=== PATIENT | female | born 1995 | race Caucasian/White ===

== ENCOUNTER 2017-10-29 07:21 | Emergency (ER) | payer SELFPAY ==
--- NOTE | 2017-10-29 08:35 | ER ---
Nurse's Notes [facility] Name: Salena Musa Age: 21 yrs Sex: Female : 1995 Arrival Date: 10/29/2017 Time: 07:24 Bed 19 Private MD: None, None Diagnosis: Encounter for general adult medical examination Presentation: 10/29 07:40 Presenting complaint: Patient states: "I am about six days late and I just want to make aa5 sure I am not ". Pt reports LMP was September. Pt reports multiple negative test at home. 07:40 Transition of care: patient was not received from another setting of care. Onset of aa5 symptoms was October 2017. Risk Assessment: Do you want to hurt yourself or someone else? Patient reports no desire to harm self or others. Initial Sepsis Screen: Does the patient meet any 2 criteria? No. Patient's initial sepsis screen is negative. Does the patient have a suspected source of infection? No. Patient's initial sepsis screen is negative. Care prior to arrival: None. 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 - Social history:: Smoking status: Patient/guardian denies using tobacco. - Ebola Screening: : No symptoms or risks identified at this time. Screenin:45 Abuse screen: Denies threats or abuse. Nutritional screening: No deficits noted. aa5 Tuberculosis screening: No symptoms or risk factors identified. Fall Risk None identified. Assessment: 07:42 General: Appears comfortable, Behavior is calm, cooperative. Pain: Denies pain. Neuro: aa5 Level of Consciousness is awake, alert, obeys commands, Oriented to person, place, time, situation. Cardiovascular: Heart tones S1 S2 present Rhythm is regular. Respiratory: Airway is patent Respiratory effort is even, unlabored, Respiratory pattern is regular, symmetrical. GI: No signs and/or symptoms were reported involving the gastrointestinal system. Patient currently denies abdominal pain. : No signs and/or symptoms were reported regarding the genitourinary system. EENT: No signs and/or symptoms were reported regarding the EENT system. Derm: Skin is pink, warm \\T\\ dry. Musculoskeletal: Range of motion: intact in all extremities. Vital Signs: 07:40 Weight 67.13 kg (R); Height 5 ft. 4 in. (162.56 cm) (R); Pain 0/10; aa5 07:50 BP 105 / 64; Pulse 97; Resp 18; Temp 98.8(O); Pulse Ox 100% on R/A; dh3 07:40 Body Mass Index 25.40 (67.13 kg, 162.56 cm) aa5 ED Course: 07:24 Patient arrived in ED. sb2 07:25 None, None is Private Physician. sb2 07:40 Seth Nicholson MD is Attending Physician. kdr 07:40 Arm band placed on Patient placed in an exam room, on a stretcher. aa5 07:41 Patient has correct armband on for positive identification. Bed in low position. Call aa5 light in reach. Side rails up X2. 07:49 Triage completed. aa5 07:50 Shelli Crane, RN is Primary Nurse. aa5 08:30 Patient did not have IV access during this emergency room visit. aa5 08:30 No provider procedures requiring assistance completed. aa5 Administered Medications: No medications were administered Outcome: 08:30 Medical screen evaluation completed per provider. Patient declined treatment. aa5 08:30 Condition: good 08:34 Discharge ordered by . aa5 08:34 Patient left the ED. aa5 Signatures: Seth Nicholson MD MD [facility] Shelli Crane, RN RN aa5 Priya Meeks [facility] Josselyn Blanco 2
[2017-10-29 08:52] VITALS: BP 105/64; TEMP 98.8; O2SAT 100
== END 2017-10-29 08:34 | disposition home or self-care (01) ==
LOC: ER 07:21
DX: Z00.00 Encounter for general adult medical examination without abnormal findings (principal); Z88.1 Allergy status to other antibiotic agents
CPT/HCPCS: 99281

== ENCOUNTER 2018-06-12 13:07 | Emergency (ER) | payer SELFPAY ==
[2018-06-12] MEDS ORDERED: NA CHLORIDE 0.9% 1,000 ML ONE (14:48)
[2018-06-12] MEDS ORDERED: PROMETHAZINE 25 MG/ML VIAL ONE (14:48)
[2018-06-12 15:06] LABS: Absolute Lymphocytes (CBC) 1.7 K/uL (0.7-4.9); Absolute Monocytes 0.8 K/uL (0.1-1.3); Absolute Neutrophil 7.2 K/uL (1.8-8.0); Basophils % 0.5 % (0-1.3); Eosinophils % 2.8 % (0-4.4); Hematocrit 35.5 % (36.0-45.0); Lymphocytes % 17.1 % (15.3-44.8); MPV 9.3 fL (7.6-11.3); Monocytes % 8.1 % (3.3-12.3); RBC Red Blood Cell Count 4.44 M/uL (3.86-4.86)
[2018-06-12 15:25] LABS: BUN Blood Urea Nitrogen 5 mg/dL (7-18); Bicarbonate 26 mmol/L (21-32); Glucose Level 84 mg/dL (74-106); HCG, Quantitative 210 mIU/mL (1-3); Potassium 3.6 mmol/L (3.5-5.1); Sodium Level 142 mmol/L (136-145)
--- NOTE | 2018-06-12 15:32 | ER ---
Nurse's Notes [facility] Name: Salena Musa Age: 22 yrs Sex: Female : 1995 Arrival Date: 06/12/2018 Time: 13:10 Bed 19 Private MD: Diagnosis: Vomiting of , unspecified Presentation: 06/12 13:28 Presenting complaint: Patient states: Merary been around my parents and they have both sg been sick but I didn't think I would catch anything, reports just found out shes and has been vomiting the last couple of days, reports body aches and chills. Transition of care: patient was not received from another setting of care. Onset of symptoms was June 12, 2018. Risk Assessment: Do you want to hurt yourself or someone else? Patient reports no desire to harm self or others. Initial Sepsis Screen: Does the patient meet any 2 criteria? No. Patient's initial sepsis screen is negative. Does the patient have a suspected source of infection? No. Patient's initial sepsis screen is negative. Care prior to arrival: None. 13:28 Method Of Arrival: Ambulatory sg 13:28 Acuity: JERICA 3 hb 13:55 Note pt reports RUQ abd pain now, reported upon entering the exam room. 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 - Social history:: Smoking status: Patient/guardian denies using tobacco. - Ebola Screening: : Patient negative for fever greater than or equal to 101.5 degrees Fahrenheit, and additional compatible Ebola Virus Disease symptoms Patient denies exposure to infectious person Patient denies travel to an Ebola-affected area in the 21 days before illness onset No symptoms or risks identified at this time. Screenin:30 Abuse screen: Denies threats or abuse. Nutritional screening: No deficits noted. em Tuberculosis screening: No symptoms or risk factors identified. Fall Risk None identified. Assessment: 14:30 General: Appears in no apparent distress. comfortable, Behavior is calm, cooperative, em Denies fever. Pain: Complains of pain in face and right lower quadrant Pain currently is 5 out of 10 on a pain scale. Neuro: Level of Consciousness is awake, alert, obeys commands, Oriented to person, place, time, situation. Neuro: Reports headache Denies dizziness, numbness. Cardiovascular: Capillary refill < 3 seconds Patient's skin is warm and dry. Respiratory: Airway is patent Respiratory effort is even, unlabored, Respiratory pattern is regular, symmetrical. GI: Abdomen is round non-distended, Bowel sounds present X 4 quads. Abd is soft X 4 quads Abdomen is tender to palpation in right lower quadrant Reports nausea, vomiting, Patient currently denies diarrhea. : Urine is clear. Derm: Skin is intact, is healthy with good turgor, Skin is pink, warm \T\ dry. Musculoskeletal: Range of motion: intact in all extremities. 14:40 Reassessment: I agree with previous assessment. hb 15:30 Reassessment: Patient appears in no apparent distress at this time. Patient and/or em family updated on plan of care and expected duration. Pain level reassessed. Patient is alert, oriented x 3, equal unlabored respirations, skin warm/dry/pink. Patient states feeling better. Patient states symptoms have improved. Vital Signs: 13:25 Pulse 95; Resp 17; Temp 97.8; Pulse Ox 100% ; Weight 72.57 kg; Height 5 ft. 4 in. sg (162.56 cm); Pain 8/10; 13:28 BP 139 / 77; sg 14:30 BP 111 / 57; Pulse 86; Resp 18; Pulse Ox 99% on R/A; em 15:30 BP 109 / 53; Pulse 78; Resp 18; Pulse Ox 99% on R/A; em 13:25 Body Mass Index 27.46 (72.57 kg, 162.56 cm) ED Course: 13:10 Patient arrived in ED. mr 13:27 Arm band placed on. sg 13:29 Triage completed. sg 13:58 Marko Woods MD is Attending Physician. [facility] 13:59 Siena Treviño FNP-C is PHCP. kb 14:14 Dami Menendez LVN is Primary Nurse. em 14:30 Patient has correct armband on for positive identification. Placed in gown. Bed in low em position. Side rails up X2. Adult w/ patient. Pulse ox on. NIBP on. 14:30 Initial lab(s) drawn, by me, sent to lab. Inserted saline lock: 20 gauge in left em antecubital area, using aseptic technique. Blood collected. 16:14 No provider procedures requiring assistance completed. IV discontinued, intact, em bleeding controlled, No redness/swelling at site. Pressure dressing applied. Administered Medications: 14:49 Drug: NS 0.9% 1000 ml Route: IV; Rate: 1000 ml; Site: left antecubital; em 15:30 Follow up: IV Status: Completed infusion; IV Intake: 1000ml em 14:52 Drug: Phenergan 12.5 mg Route: IVP; Site: left antecubital; hb 15:30 Follow up: Response: No adverse reaction; Nausea is decreased em Intake: 15:30 IV: 1000ml; Total: 1000ml. em Outcome: 15:32 Discharge ordered by . kb 16:14 Discharged to home ambulatory. em 16:14 Condition: good 16:14 Discharge instructions given to patient, Instructed on discharge instructions, follow up and referral plans. Demonstrated understanding of instructions, follow-up care. 16:15 Patient left the ED. em Signatures: Siena Treviño, SYSTEMS OPERATOR-C SYSTEMS OPERATOR-Shaq Herrera, RN RN sg Marko Woods MD MD cha Rivera, Mary mr Munoz, Edgar, STERILIZER OPERATOR STERILIZER OPERATOR em Serena Vogt, RN RN hb Corrections: (The following items were deleted from the chart) 13:56 13:28 Acuity: JERICA 4 sg hb
--- NOTE | 2018-06-12 15:32 | EDPHYS ---
Physician Documentation [facility] Name: Salena Musa Age: 22 yrs Sex: Female : 1995 Arrival Date: 06/12/2018 Time: 13:10 Bed 19 Private MD: ED Physician Marko Woods HPI: 06/12 14:10 This 22 yrs old Female presents to ER via Ambulatory with complaints of kb Vomiting, Unknown wks . 14:28 The patient presents to the emergency department with nausea and vomiting, that started kb yesterday. course: care: none, Leakage of Fluid: none appreciated, Ultrasound: the patient has not had an ultrasound. Previous pregnancies: in previous pregnancies patient has had. Associated signs and symptoms: Pertinent positives: nausea, vomiting, Pertinent negatives: abdominal pain, chest pain, diarrhea, dysuria, fever, frequency, ruptured membranes, seizure, shortness of breath, vaginal bleeding, vaginal discharge. The patient has not experienced similar symptoms in the past. The patient has not recently seen a physician. Pt reports vomiting, weakness and headache since yesterday. Had + test 5 days ago. 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 - Social history:: Smoking status: Patient/guardian denies using tobacco. - Ebola Screening: : Patient negative for fever greater than or equal to 101.5 degrees Fahrenheit, and additional compatible Ebola Virus Disease symptoms Patient denies exposure to infectious person Patient denies travel to an Ebola-affected area in the 21 days before illness onset No symptoms or risks identified at this time. ROS: 14:30 Constitutional: Negative for fever, chills, and weight loss, Cardiovascular: Negative kb for chest pain, palpitations, and edema, Respiratory: Negative for shortness of breath, cough, wheezing, and pleuritic chest pain, Back: Negative for injury and pain, : Negative for injury, bleeding, discharge, and swelling, MS/Extremity: Negative for injury and deformity, Skin: Negative for injury, rash, and discoloration, Neuro: Negative for headache, weakness, numbness, tingling, and seizure. 14:30 Abdomen/GI: Positive for nausea and vomiting, Negative for abdominal pain, diarrhea, constipation, abdominal cramps, abdominal distension, anorexia. Exam: 14:30 Constitutional: This is a well developed, well nourished patient who is awake, alert, kb and in no acute distress. Head/Face: Normocephalic, atraumatic. Chest/axilla: Normal chest wall appearance and motion. Nontender with no deformity. No lesions are appreciated. Cardiovascular: Regular rate and rhythm with a normal S1 and S2. No gallops, murmurs, or rubs. Normal PMI, no JVD. No pulse deficits. Respiratory: Lungs have equal breath sounds bilaterally, clear to auscultation and percussion. No rales, rhonchi or wheezes noted. No increased work of breathing, no retractions or nasal flaring. Abdomen/GI: Soft, non-tender, with normal bowel sounds. No distension or tympany. No guarding or rebound. No evidence of tenderness throughout. Back: No spinal tenderness. No costovertebral tenderness. Full range of motion. Skin: Warm, dry with normal turgor. Normal color with no rashes, no lesions, and no evidence of cellulitis. MS/ Extremity: Pulses equal, no cyanosis. Neurovascular intact. Full, normal range of motion. Neuro: Awake and alert, GCS 15, oriented to person, place, time, and situation. Cranial nerves II-XII grossly intact. Motor strength 5/5 in all extremities. Sensory grossly intact. Cerebellar exam normal. Normal gait. Vital Signs: 13:25 Pulse 95; Resp 17; Temp 97.8; Pulse Ox 100% ; Weight 72.57 kg; Height 5 ft. 4 in. sg (162.56 cm); Pain 8/10; 13:28 BP 139 / 77; sg 14:30 BP 111 / 57; Pulse 86; Resp 18; Pulse Ox 99% on R/A; em 15:30 BP 109 / 53; Pulse 78; Resp 18; Pulse Ox 99% on R/A; em 13:25 Body Mass Index 27.46 (72.57 kg, 162.56 cm) MDM: 13:59 Patient medically screened. [facility] 14:30 Data reviewed: vital signs, nurses notes. Data interpreted: Pulse oximetry: on room air kb is 100 %. Interpretation: normal. 15:29 Counseling: I had a detailed discussion with the patient and/or guardian regarding: the kb historical points, exam findings, and any diagnostic results supporting the discharge/admit diagnosis, lab results, the need for outpatient follow up, an OB/Gyne specialist, to return to the emergency department if symptoms worsen or persist or if there are any questions or concerns that arise at home. 06/12 13:28 Order name: Flu sg 06/12 13:28 Order name: Influenza Screen (A ; Complete Time: 14:27 EDOH 06/12 14:35 Order name: Quantitative Hcg; Complete Time: 15:27 kb 06/12 14:35 Order name: Abo/rh Typing 06/12 14:35 Order name: Basic Metabolic Panel; Complete Time: 15:27 kb 06/12 14:35 Order name: CBC with Diff; Complete Time: 15:10 kb 06/12 13:59 Order name: Urine Dipstick-Ancillary (obtain specimen); Complete Time: 14:53 kb 06/12 14:31 Order name: PO challenge; Complete Time: 16:10 kb 06/12 14:37 Order name: Urine Dipstick--Ancillary (enter results) ms 06/12 14:37 Order name: Urine --Ancillary (enter results) ms 06/12 14:38 Order name: Urine Dipstick-Ancillary [facility] 06/12 14:38 Order name: Urine --Ancillary [facility] 06/12 14:35 Order name: IV Saline Lock; Complete Time: 14:49 kb 06/12 14:35 Order name: Labs collected and sent; Complete Time: 14:49 kb 06/12 14:35 Order name: NPO; Complete Time: 14:49 kb Administered Medications: 14:49 Drug: NS 0.9% 1000 ml Route: IV; Rate: 1000 ml; Site: left antecubital; em 15:30 Follow up: IV Status: Completed infusion; IV Intake: 1000ml em 14:52 Drug: Phenergan 12.5 mg Route: IVP; Site: left antecubital; hb 15:30 Follow up: Response: No adverse reaction; Nausea is decreased em Disposition: 06/13 07:57 Co-signature as Attending Physician, Marko Woods MD I agree with the assessment and mark plan of care. Disposition: 06/12/18 15:32 Discharged to Home. Impression: Vomiting of , unspecified. - Condition is Stable. - Discharge Instructions: Morning Sickness, [id number], Nausea and Vomiting, Adult, [id number]. - Medication Reconciliation Form, Thank You Letter, Antibiotic Education, Prescription Opioid Use form. - Follow up: Emergency Department; When: As needed; Reason: Worsening of condition. Follow up: Private Physician; When: 2 - 3 days; Reason: Recheck today's complaints, Continuance of care, Re-evaluation by your physician. Signatures: Dispatcher [employer] EDMS Siena Treviño, DOOR AND ARRIVAL ATTENDANT-C DOOR AND ARRIVAL ATTENDANT-Ckb Shaq Petit, RN RN Marko Baig MD MD cha Munoz, Edgar, ERISA ATTORNEY ERISA ATTORNEY em Serena Vogt, RN RN Corrections: (The following items were deleted from the chart) 06/12 16:15 15:32 06/12/2018 15:32 Discharged to Home. Impression: Vomiting of , em unspecified. Condition is Stable. Forms are Medication Reconciliation Form, Thank You Letter, Antibiotic Education, Prescription Opioid Use. Follow up: Emergency Department; When: As needed; Reason: Worsening of condition. Follow up: Private Physician; When: 2 - 3 days; Reason: Recheck today's complaints, Continuance of care, Re-evaluation by your physician. kb
[2018-06-12 16:30] VITALS: TEMP 97.8
[2018-06-12 16:35] VITALS: O2SAT 99
[2018-06-12 16:36] VITALS: BP 109/53
[2018-06-12 20:38] LABS: Urine Blood NEGATIVE (NEG); Urine Glucose NEGATIVE (NEG); Urine Protein NEGATIVE (NEG); Urine pH 7.5 (5.0-7.0)
== END 2018-06-12 16:15 | disposition home or self-care (01) ==
LOC: ER 13:07
DX: O21.9 Vomiting of pregnancy, unspecified (principal); Z3A.00 Weeks of gestation of pregnancy not specified; D64.9 Anemia, unspecified; Z88.0 Allergy status to penicillin
CPT/HCPCS: 36415; 80048; 81003; 81025; 84702; 85025; 86900; 86901; 87804; 96361; 96374; 99284; J2550; J7030

== ENCOUNTER 2018-08-07 16:59 | Emergency (ER) | payer SELFPAY ==
[2018-08-07] MEDS ORDERED: ONDANSETRON 4 MG/2 ML VIAL ONE (17:55)
[2018-08-07] MEDS ORDERED: NA CHLORIDE 0.9% 1,000 ML ONE (17:55)
[2018-08-07 18:08] LABS: Absolute Lymphocytes (CBC) 0.6 K/uL (0.7-4.9); Absolute Monocytes 0.8 K/uL (0.1-1.3); Absolute Neutrophil 14.5 K/uL (1.8-8.0); Basophils % 0.2 % (0-1.3); Eosinophils % 0.9 % (0-4.4); Hematocrit 37.8 % (36.0-45.0); Lymphocytes % 3.9 % (15.3-44.8); MPV 9.9 fL (7.6-11.3); Monocytes % 4.9 % (3.3-12.3); RBC Red Blood Cell Count 4.57 M/uL (3.86-4.86)
[2018-08-07 18:14] LABS: BUN Blood Urea Nitrogen 9 mg/dL (7-18); Bicarbonate 23 mmol/L (21-32); Glucose Level 84 mg/dL (74-106); Potassium 3.6 mmol/L (3.5-5.1); Sodium Level 140 mmol/L (136-145)
[2018-08-07 18:21] LABS: Urine Blood NEGATIVE (NEG); Urine Glucose NEGATIVE (NEG); Urine Protein 2+ (NEG); Urine Specific Gravity >1.030 (1.005-1.030); Urine pH 5.5 (5.0-7.0)
--- NOTE | 2018-08-07 18:38 | ER ---
Nurse's Notes [facility] Name: Salena Musa Age: 22 yrs Sex: Female : 1995 Arrival Date: 08/07/2018 Time: 17:02 Bed 17 Private MD: Diagnosis: Gastroenteritis Presentation: 08/07 17:10 Presenting complaint: Patient states: lower abd pain, vomiting, "I blacked out sv earlier.". Transition of care: patient was not received from another setting of care. Onset of symptoms was August 07, 2018. Care prior to arrival: None. 17:10 Method Of Arrival: Ambulatory sv 17:10 Acuity: JERICA 2 sv Triage Assessment: 17:11 General: Appears in no apparent distress. uncomfortable, well developed, Behavior is sv cooperative, restless. Pain: Complains of pain in right lower quadrant and left lower quadrant Pain currently is 7 out of 10 on a pain scale. Neuro: Level of Consciousness is awake, alert, obeys commands, Oriented to person, place, time, situation, Gait is steady. Respiratory: Respiratory effort is even, unlabored, Respiratory pattern is regular, symmetrical. 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 Nutritional screening: No deficits noted. em Tuberculosis screening: No symptoms or risk factors identified. Fall Risk None identified. Assessment: 17:35 General: Appears in no apparent distress. comfortable, Behavior is calm, cooperative, em Denies fever. Pain: Complains of pain in abdomen Pain currently is 9 out of 10 on a pain scale. Neuro: Level of Consciousness is awake, alert, obeys commands, Oriented to person, place, time, situation, Reports dizziness, Denies headache. Cardiovascular: Capillary refill < 3 seconds Patient's skin is warm and dry. Respiratory: Airway is patent Respiratory effort is even, unlabored, Respiratory pattern is regular, symmetrical. GI: Abdomen is flat, Reports diarrhea, nausea, vomiting. : Denies burning with urination, urinary frequency. Derm: Skin is intact, is healthy with good turgor, Skin is pink, warm \\T\\ dry. Musculoskeletal: Capillary refill < 3 seconds, Range of motion: intact in all extremities. 17:45 Reassessment: I agree with previous assessment. hb 18:41 Reassessment: Patient appears in no apparent distress at this time. Patient and/or em family updated on plan of care and expected duration. Pain level reassessed. Patient is alert, oriented x 3, equal unlabored respirations, skin warm/dry/pink. Patient states feeling better. Patient states symptoms have improved. Vital Signs: 17:10 BP 144 / 127; Pulse 102; Resp 22; Temp 98.1; Pulse Ox 100% ; Weight 72.57 kg; Height 5 sv ft. 4 in. (162.56 cm); Pain 9/10; 17:35 BP 100 / 64; Pulse 93; Resp 18; Pulse Ox 99% on R/A; em 17:10 Body Mass Index 27.46 (72.57 kg, 162.56 cm) sv ED Course: 17:02 Patient arrived in ED. mr 17:10 Triage completed. sv 17:11 Arm band placed on. sv 17:12 Dami Menendez LVN is Primary Nurse. em 17:18 Gabriele Cruz PA is PHCP. jr8 17:18 Mrako Woods MD is Attending Physician. jr8 18:00 Patient has correct armband on for positive identification. Bed in low position. Call em light in reach. Pulse ox on. NIBP on. 18:00 Initial lab(s) drawn, by me, sent to lab. Inserted saline lock: 20 gauge in left em antecubital area, using aseptic technique. Blood collected. 18:48 No provider procedures requiring assistance completed. IV discontinued, intact, em bleeding controlled, No redness/swelling at site. Pressure dressing applied. Administered Medications: 17:58 Drug: Zofran 4 mg Route: IVP; Site: left antecubital; hb 18:48 Follow up: Response: No adverse reaction; Nausea is decreased em 17:58 Drug: NS 0.9% 1000 ml Route: IV; Rate: 1000 ml; Site: left antecubital; hb 18:48 Follow up: IV Status: Completed infusion; IV Intake: 1000ml em Intake: 18:48 IV: 1000ml; Total: 1000ml. em Outcome: 18:38 Discharge ordered by . jr8 18:48 Discharged to home ambulatory. em 18:48 Condition: good 18:48 Discharge instructions given to patient, Instructed on discharge instructions, follow up and referral plans. medication usage, Demonstrated understanding of instructions, follow-up care, medications, Prescriptions given X 1. 18:51 Patient left the ED. em Signatures: Carly Eid, RN RN Cierra Sánchez, Dami, CONTINUOUS ABSORPTION PROCESS OPERATOR CONTINUOUS ABSORPTION PROCESS OPERATOR em Gabriele Cruz PA PA jr8 Serena Vogt RN RN Corrections: (The following items were deleted from the chart) 17:11 17:10 Presenting complaint: Patient states: vomiting, "I blacked out earlier." sv sv 17:12 17:10 Acuity: JERICA 3 sv sv 17:12 17:10 BP 1 / ???; Pulse 102bpm; Resp 22bpm; Pulse Ox 100%; Temp 98.1F; 72.57 kg; Height sv 5 ft. 4 in.; BMI: 27.4; Pain 9/10; sv
--- NOTE | 2018-08-07 18:39 | EDPHYS ---
Physician Documentation [facility] Name: Salena Musa Age: 22 yrs Sex: Female : 1995 Arrival Date: 08/07/2018 Time: 17:02 Bed 17 Private MD: ED Physician Marko Woods HPI: 08/07 18:06 This 22 yrs old Female presents to ER via Ambulatory with complaints of jr8 Vomiting, Dizziness. 18:06 The patient presents to the emergency department with nausea, vomiting, diarrhea. jr8 Onset: The symptoms/episode began/occurred acutely, today. Possible causes: unknown. The symptoms are aggravated by nothing. The symptoms are alleviated by nothing. Associated signs and symptoms: The patient has no apparent associated signs or symptoms. Severity of symptoms: At their worst the symptoms were moderate in the emergency department the symptoms are unchanged. The patient has not experienced similar symptoms in the past. The patient has not recently seen a physician. Stated that her daughter was recently diagnosed with influenza this past Wednesday. This AM has had multiple bouts of n/v/d. Has not been able to hold anything down . 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 em Historical: - Allergies: 17:10 Amoxicillin; sv - PMHx: 17:10 Anemia; sv - PSHx: 17:10 ; sv ROS: 18:06 Eyes: Negative for injury, pain, redness, and discharge, ENT: Negative for injury, jr8 pain, and discharge, Neck: Negative for injury, pain, and swelling, Cardiovascular: Negative for chest pain, palpitations, and edema, Respiratory: Negative for shortness of breath, cough, wheezing, and pleuritic chest pain, Back: Negative for injury and pain, MS/Extremity: Negative for injury and deformity, Skin: Negative for injury, rash, and discoloration, Neuro: Negative for headache, weakness, numbness, tingling, and seizure. 18:06 Abdomen/GI: Positive for nausea, vomiting, and diarrhea, Negative for abdominal pain, abdominal distension, anorexia, dysphagia, hematemesis, black/tarry stool, rectal pain, rectal bleeding, bowel incontinence, flatulence. Exam: 18:06 Eyes: Pupils equal round and reactive to light, extra-ocular motions intact. Lids and jr8 lashes normal. Conjunctiva and sclera are non-icteric and not injected. Cornea within normal limits. Periorbital areas with no swelling, redness, or edema. ENT: Nares patent. No nasal discharge, no septal abnormalities noted. Tympanic membranes are normal and external auditory canals are clear. Oropharynx with no redness, swelling, or masses, exudates, or evidence of obstruction, uvula midline. Mucous membranes moist. Neck: Trachea midline, no thyromegaly or masses palpated, and no cervical lymphadenopathy. Supple, full range of motion without nuchal rigidity, or vertebral point tenderness. No Meningismus. Cardiovascular: Regular rate and rhythm with a normal S1 and S2. No gallops, murmurs, or rubs. Normal PMI, no JVD. No pulse deficits. Respiratory: Lungs have equal breath sounds bilaterally, clear to auscultation and percussion. No rales, rhonchi or wheezes noted. No increased work of breathing, no retractions or nasal flaring. Abdomen/GI: Soft, non-tender, with normal bowel sounds. No distension or tympany. No guarding or rebound. No evidence of tenderness throughout. Back: No spinal tenderness. No costovertebral tenderness. Full range of motion. Skin: Warm, dry with normal turgor. Normal color with no rashes, no lesions, and no evidence of cellulitis. MS/ Extremity: Pulses equal, no cyanosis. Neurovascular intact. Full, normal range of motion. Neuro: Awake and alert, GCS 15, oriented to person, place, time, and situation. Cranial nerves II-XII grossly intact. Motor strength 5/5 in all extremities. Sensory grossly intact. Cerebellar exam normal. Normal gait. Vital Signs: 17:10 BP 144 / 127; Pulse 102; Resp 22; Temp 98.1; Pulse Ox 100% ; Weight 72.57 kg; Height 5 sv ft. 4 in. (162.56 cm); Pain 9/10; 17:35 BP 100 / 64; Pulse 93; Resp 18; Pulse Ox 99% on R/A; em 17:10 Body Mass Index 27.46 (72.57 kg, 162.56 cm) sv MDM: 17:18 Patient medically screened. [facility] 18:37 Data reviewed: vital signs, nurses notes, lab test result(s), and as a result, I will jr8 discharge patient. Data interpreted: Pulse oximetry: on room air is 99 %. Interpretation: normal. Counseling: I had a detailed discussion with the patient and/or guardian regarding: the historical points, exam findings, and any diagnostic results supporting the discharge/admit diagnosis, lab results, the need for outpatient follow up, a family practitioner, an OB/Gyne specialist, to return to the emergency department if symptoms worsen or persist or if there are any questions or concerns that arise at home. Response to treatment: the patient's symptoms have markedly improved after treatment, patient is well hydrated. 08/07 17:38 Order name: CBC with Diff em 08/07 17:38 Order name: Basic Metabolic Panel; Complete Time: 18:15 em 08/07 17:38 Order name: Influenza Screen (a \T\ B); Complete Time: 18:32 em 08/07 17:38 Order name: CBC with Automated Diff; Complete Time: 18:48 EDMS 08/07 18:12 Order name: CBC Smear Scan; Complete Time: 18:48 EDMS 08/07 18:15 Order name: Urine Dipstick--Ancillary (enter results); Complete Time: 18:32 ms 08/07 17:38 Order name: Urine Dipstick-Ancillary (obtain specimen); Complete Time: 18:47 em 08/07 17:38 Order name: Urine Test (obtain specimen); Complete Time: 18:47 em 08/07 18:15 Order name: Urine --Ancillary (enter results); Complete Time: 18:32 ms Administered Medications: 17:58 Drug: Zofran 4 mg Route: IVP; Site: left antecubital; hb 18:48 Follow up: Response: No adverse reaction; Nausea is decreased em 17:58 Drug: NS 0.9% 1000 ml Route: IV; Rate: 1000 ml; Site: left antecubital; hb 18:48 Follow up: IV Status: Completed infusion; IV Intake: 1000ml em Disposition: 08/08 07:51 Co-signature as Attending Physician, Marko Woods MD I agree with the assessment and mark plan of care. Disposition: 08/07/18 18:38 Discharged to Home. Impression: Gastroenteritis. - Condition is Stable. - Discharge Instructions: Viral Gastroenteritis, Adult. - Prescriptions for promethazine 25 mg Oral Tablet - take 1 tablet by ORAL route every 6 hours As needed; 20 tablet. - Medication Reconciliation Form, Thank You Letter, Antibiotic Education, Prescription Opioid Use form. - Follow up: Private Physician; When: 5 - 6 days; Reason: Recheck today's complaints, Continuance of care, Re-evaluation by your physician. - Problem is new. - Symptoms have improved. Signatures: Dispatcher [employer] Carly Wright, DANO RN Marko Eduardo MD MD cha Munoz, Edgar, REJECTED ITEMS CLERK REJECTED ITEMS CLERK em Gabriele Cruz, ART CORDOVA jr8 Serena Vogt RN RN Corrections: (The following items were deleted from the chart) 08/07 18:51 18:38 08/07/2018 18:38 Discharged to Home. Impression: Gastroenteritis. Condition is em Stable. Forms are Medication Reconciliation Form, Thank You Letter, Antibiotic Education, Prescription Opioid Use. Follow up: Private Physician; When: 5 - 6 days; Reason: Recheck today's complaints, Continuance of care, Re-evaluation by your physician. Problem is new. Symptoms have improved. jr8
[2018-08-07 18:47] LABS: Blood Morphology Comment NOT SEEN (NOT SEEN); Platelet Estimate ADEQ; Urine White Blood Cell Casts OK
[2018-08-07 18:58] VITALS: TEMP 98.1
[2018-08-07 18:59] VITALS: BP 100/64; O2SAT 99
== END 2018-08-07 18:51 | disposition home or self-care (01) ==
LOC: ER 16:59
DX: K52.9 Noninfective gastroenteritis and colitis, unspecified (principal); D64.9 Anemia, unspecified; Z88.0 Allergy status to penicillin
CPT/HCPCS: 36415; 80048; 81003; 81025; 85025; 87804; 96361; 96374; 99284; J2405; J7030

== ENCOUNTER 2019-02-07 04:39 | Emergency (ER) | payer OTHER ==
[2019-02-07] MEDS ORDERED: NA CHLORIDE 0.9% 1,000 ML ONE (05:17)
[2019-02-07 05:39] LABS: Absolute Lymphocytes (CBC) 2.5 K/uL (0.7-4.9); Hematocrit 33.9 % (36.0-45.0); Lymphocytes % 22.5 % (15.3-44.8); MPV 8.7 fL (7.6-11.3); RBC Red Blood Cell Count 4.58 M/uL (3.86-4.86)
[2019-02-07 05:48] LABS: BUN Blood Urea Nitrogen 9 mg/dL (7-18); Bicarbonate 29 mmol/L (21-32); Glucose Level 95 mg/dL (74-106); HCG, Quantitative 5 mIU/mL (1-3); Potassium 3.9 mmol/L (3.5-5.1); Sodium Level 140 mmol/L (136-145)
--- NOTE | 2019-02-07 06:01 | ER ---
Nurse's Notes [facility] Name: Salena Musa Age: 23 yrs Sex: Female : 1995 Arrival Date: 02/07/2019 Time: 04:42 Bed 5 Private MD: Diagnosis: Dysmenorrhea, unspecified;Anemia, unspecified Presentation: 02/07 05:02 Presenting complaint: Patient states: heavy vaginal bleeding started suddenly last ak1 night with cramps. pt stated in there ER lobby restroom the bleeding had slowed. Transition of care: patient was not received from another setting of care. Onset of symptoms was February 07, 2019. Risk Assessment: Do you want to hurt yourself or someone else? Patient reports no desire to harm self or others. Initial Sepsis Screen: Does the patient meet any 2 criteria? No. Patient's initial sepsis screen is negative. Does the patient have a suspected source of infection? No. Patient's initial sepsis screen is negative. Note pt s/p delivery 01/27/19. Care prior to arrival: None. 05:02 Method Of Arrival: Ambulatory ak1 05:02 Acuity: JERICA 3 ak1 Triage Assessment: 05:04 General: Appears in no apparent distress. Behavior is calm, cooperative. ak1 05:04 : Reports vaginal bleeding that is heavy flow since late last night. 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 - Social history:: Smoking status: Patient/guardian denies using tobacco. - Ebola Screening: : No symptoms or risks identified at this time. - Family history:: not pertinent. Screenin:04 Abuse screen: Denies threats or abuse. Denies injuries from another. Nutritional ak1 screening: No deficits noted. Tuberculosis screening: No symptoms or risk factors identified. Fall Risk None identified. Assessment: 05:15 General: Appears in no apparent distress. Behavior is calm, cooperative, appropriate wh for age. Pain: Denies pain. Neuro: Level of Consciousness is awake, alert, obeys commands, Oriented to person, place, time, situation, Appropriate for age. Cardiovascular: Heart tones S1 S2. Respiratory: Airway is patent Respiratory effort is even, unlabored, Respiratory pattern is regular, symmetrical, Breath sounds are clear bilaterally. GI: Abdomen is round non-distended, Abd is soft and non tender X 4 quads. Reports S/P Caesarian Section done with steristrips. : S/P Caesarian Section with Steri-Strip dressing Reports vaginal bleeding that is. EENT: No signs and/or symptoms were reported regarding the EENT system. Derm: Skin is intact, is healthy with good turgor, Skin is pink, warm \T\ dry. normal. Musculoskeletal: Circulation, motion, and sensation intact. Vital Signs: 05:01 BP 113 / 68; Pulse 87; Resp 16; Temp 97.6(TE); Pulse Ox 99% on R/A; Weight 77.11 kg ak1 (R); Height 5 ft. 4 in. (162.56 cm) (R); Pain 3/10; 05:28 BP 111 / 68 Supine; Pulse 86; ea 05:29 BP 101 / 57 Sitting; Pulse 85; ea 05:29 BP 108 / 66 Standing; Pulse 102; ea 05:01 Body Mass Index 29.18 (77.11 kg, 162.56 cm) ak1 ED Course: 04:42 Patient arrived in ED. es 04:50 Marko Woods MD is Attending Physician. mark 04:57 Dany Ruiz is Primary Nurse. 05:01 Arm band placed on Patient placed in an exam room, on a stretcher, on pulse oximetry, ak1 Patient notified of wait time. 05:03 Triage completed. ak1 05:04 Patient has correct armband on for positive identification. Bed in low position. Call ak1 light in reach. Side rails up X 1. Adult w/ patient. Pulse ox on. NIBP on. 05:10 Inserted saline lock: 22 gauge in right antecubital area, using aseptic technique. wh Blood collected. 06:16 No provider procedures requiring assistance completed. IV discontinued, intact, wh bleeding controlled, No redness/swelling at site. Administered Medications: 05:24 Drug: NS 0.9% 1000 ml Route: IV; Rate: 1 bolus; Site: left antecubital; ea 06:17 Follow up: Response: No adverse reaction; IV Status: Completed infusion Outcome: 06:00 Discharge ordered by . mark 06:17 Discharged to home ambulatory, with family. 06:17 Condition: stable 06:17 Discharge instructions given to patient, family, Instructed on discharge instructions, follow up and referral plans. medication usage, POC Demonstrated understanding of instructions, follow-up care, medications, POC Prescriptions given X 1. 06:18 Patient left the ED. Signatures: Marko Woods MD MD cha Salyer, Edna es Krenek, Amber, RN RN ak1 Gita Cordova RN RN Dany Woods
--- NOTE | 2019-02-07 06:01 | EDPHYS ---
Physician Documentation [facility] Name: Salena Musa Age: 23 yrs Sex: Female : 1995 Arrival Date: 02/07/2019 Time: 04:42 Bed 5 Private MD: ED Physician Marko Woods HPI: 02/07 05:05 This 23 yrs old Female presents to ER via Ambulatory with complaints of mark Vaginal Bleeding. 05:05 The patient presents with vaginal bleeding that is. Onset: The symptoms/episode mark began/occurred just prior to arrival, this morning. Modifying factors: The symptoms are alleviated by nothing, the symptoms are aggravated by nothing. Associated signs and symptoms: The patient has no apparent associated signs or symptoms. Severity of symptoms: At their worst the symptoms were. The patient is not sexually active. The patient has experienced similar episodes in the past, multiple times. 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 - Social history:: Smoking status: Patient/guardian denies using tobacco. - Ebola Screening: : No symptoms or risks identified at this time. - Family history:: not pertinent. ROS: 05:05 Constitutional: Negative for fever, chills, and weight loss, Eyes: Negative for injury, mark pain, redness, and discharge, ENT: Negative for injury, pain, and discharge, Neck: Negative for injury, pain, and swelling, Cardiovascular: Negative for chest pain, palpitations, and edema, Respiratory: Negative for shortness of breath, cough, wheezing, and pleuritic chest pain, MS/Extremity: Negative for injury and deformity, Skin: Negative for injury, rash, and discoloration, Neuro: Negative for headache, weakness, numbness, tingling, and seizure. 05:05 : Positive for vaginal bleeding. Exam: 05:05 Constitutional: This is a well developed, well nourished patient who is awake, alert, mark and in no acute distress. Head/Face: Normocephalic, atraumatic. Eyes: Pupils equal round and reactive to light, extra-ocular motions intact. Lids and lashes normal. Conjunctiva and sclera are non-icteric and not injected. Cornea within normal limits. Periorbital areas with no swelling, redness, or edema. ENT: Nares patent. No nasal discharge, no septal abnormalities noted. Tympanic membranes are normal and external auditory canals are clear. Oropharynx with no redness, swelling, or masses, exudates, or evidence of obstruction, uvula midline. Mucous membranes moist. Neck: Trachea midline, no thyromegaly or masses palpated, and no cervical lymphadenopathy. Supple, full range of motion without nuchal rigidity, or vertebral point tenderness. No Meningismus. Chest/axilla: Normal chest wall appearance and motion. Nontender with no deformity. No lesions are appreciated. Cardiovascular: Regular rate and rhythm with a normal S1 and S2. No gallops, murmurs, or rubs. Normal PMI, no JVD. No pulse deficits. Respiratory: Lungs have equal breath sounds bilaterally, clear to auscultation and percussion. No rales, rhonchi or wheezes noted. No increased work of breathing, no retractions or nasal flaring. Abdomen/GI: Soft, non-tender, with normal bowel sounds. No distension or tympany. No guarding or rebound. No evidence of tenderness throughout. Back: No spinal tenderness. No costovertebral tenderness. Full range of motion. Pelvic Exam: Normal external genitalia. Speculum exam with closed cervical os, no discharge or bleeding noted. Bimanual exam with normal adnexa, no adnexal or cervical motion tenderness. Normal uterus. Skin: Warm, dry with normal turgor. Normal color with no rashes, no lesions, and no evidence of cellulitis. MS/ Extremity: Pulses equal, no cyanosis. Neurovascular intact. Full, normal range of motion. Neuro: Awake and alert, GCS 15, oriented to person, place, time, and situation. Cranial nerves II-XII grossly intact. Motor strength 5/5 in all extremities. Sensory grossly intact. Cerebellar exam normal. Normal gait. Vital Signs: 05:01 BP 113 / 68; Pulse 87; Resp 16; Temp 97.6(TE); Pulse Ox 99% on R/A; Weight 77.11 kg ak1 (R); Height 5 ft. 4 in. (162.56 cm) (R); Pain 06/26; 05:28 BP 111 / 68 Supine; Pulse 86; ea 05:29 BP 101 / 57 Sitting; Pulse 85; ea 05:29 BP 108 / 66 Standing; Pulse 102; ea 05:01 Body Mass Index 29.18 (77.11 kg, 162.56 cm) [facility] MDM: 04:50 Patient medically screened. [facility] 05:07 Data reviewed: vital signs, nurses notes, lab test result(s), EKG, radiologic studies, [facility] CT scan. 02/07 04:52 Order name: Quantitative Hcg; Complete Time: 05:58 [facility] 02/07 04:52 Order name: Abo/rh Typing [facility] 02/07 04:52 Order name: Basic Metabolic Panel; Complete Time: 05:58 [facility] 02/07 04:52 Order name: CBC with Diff [facility] 02/07 05:13 Order name: Urine --Ancillary (enter results) [facility] 02/07 05:13 Order name: Urine Dipstick--Ancillary (enter results) [facility] 02/07 04:52 Order name: Urine Test (obtain specimen); Complete Time: 05:11 [facility] 02/07 04:52 Order name: IV Saline Lock; Complete Time: 05:16 [facility] 02/07 04:52 Order name: Labs collected and sent; Complete Time: 05:16 [facility] 02/07 04:52 Order name: NPO; Complete Time: 05:17 [facility] 02/07 04:52 Order name: Urine Dipstick-Ancillary (obtain specimen); Complete Time: 05:05 [facility] 02/07 05:05 Order name: Orthostatics; Complete Time: 05:24 [facility] Administered Medications: 05:24 Drug: NS 0.9% 1000 ml Route: IV; Rate: 1 bolus; Site: left antecubital; ea 06:17 Follow up: Response: No adverse reaction; IV Status: Completed infusion wh Disposition: 02/07/19 06:00 Discharged to Home. Impression: Dysmenorrhea, unspecified, Anemia, unspecified. - Condition is Stable. - Discharge Instructions: Dysmenorrhea, Pelvic Pain, Female, Pelvic Rest, Dysmenorrhea, [id number]. - Prescriptions for Ibuprofen 600 mg Oral Tablet - take 1 tablet by ORAL route every 8 hours As needed take with food; 21 tablet. - Medication Reconciliation Form, Thank You Letter, Antibiotic Education, Prescription Opioid Use form. - Follow up: Private Physician; When: 2 - 3 days; Reason: Recheck today's complaints, Continuance of care, Re-evaluation by your physician. - Problem is new. - Symptoms have improved. Signatures: Dispatcher [employer] EDVT Marko Woods MD MD cha Krenek, Amber, RN RN ak1 Gita Cordova RN RN Dany Woods Corrections: (The following items were deleted from the chart) 06:18 06:00 02/07/2019 06:00 Discharged to Home. Impression: Dysmenorrhea, unspecified; wh Anemia, unspecified. Condition is Stable. Forms are Medication Reconciliation Form, Thank You Letter, Antibiotic Education, Prescription Opioid Use. Follow up: Private Physician; When: 2 - 3 days; Reason: Recheck today's complaints, Continuance of care, Re-evaluation by your physician. Problem is new. Symptoms have improved. mark
[2019-02-07 06:22] VITALS: TEMP 97.6; O2SAT 99
[2019-02-07 06:25] VITALS: BP 108/66
[2019-02-07 06:53] LABS: Anisocytosis 2+; Blood Morphology Comment NOTED (NOT SEEN); Hypochromasia 1+; Platelet Estimate ADEQ; Poikilocytosis 1+; Urine White Blood Cell Casts OK
[2019-02-07 12:17] LABS: Urine Blood 3+ (NEG); Urine Glucose NEGATIVE (NEG); Urine Protein 2+ (NEG); Urine Specific Gravity 1.025 (1.005-1.030)
== END 2019-02-07 06:18 | disposition home or self-care (01) ==
LOC: ER 04:39
DX: D64.9 Anemia, unspecified (principal); Z88.1 Allergy status to other antibiotic agents
CPT/HCPCS: 85025; 80048; 36415; 86900; 81025; 86901; 84702; 81003; 96360; 99284; J7030

== ENCOUNTER 2019-02-19 13:59 | Emergency (ER) | payer OTHER ==
--- NOTE | 2019-02-19 14:54 | ER ---
Nurse's Notes [facility] Name: Salena Musa Age: 23 yrs Sex: Female : 1995 Arrival Date: 02/19/2019 Time: 14:01 Bed 20 Private MD: None, None Diagnosis: Cellulitis of abdominal wall Presentation: 02/19 14:07 Presenting complaint: Patient states: Had in January and I am concerned for la1 infection. Transition of care: patient was not received from another setting of care. Onset of symptoms was February 19, 2019. Risk Assessment: Do you want to hurt yourself or someone else? Patient reports no desire to harm self or others. Initial Sepsis Screen: Does the patient meet any 2 criteria? No. Patient's initial sepsis screen is negative. Does the patient have a suspected source of infection? No. Patient's initial sepsis screen is negative. Care prior to arrival: None. 14:07 Method Of Arrival: Ambulatory la1 14:07 Acuity: JERICA 3 la1 Historical: - Allergies: 14:08 Amoxicillin; la1 - PMHx: 14:08 Anemia; la1 - Immunization history:: Adult Immunizations up to date. - Social history:: Smoking status: Patient/guardian denies using tobacco. - Ebola Screening: : No symptoms or risks identified at this time. Screenin:23 Abuse screen: Denies threats or abuse. Nutritional screening: No deficits noted. em Tuberculosis screening: No symptoms or risk factors identified. Fall Risk None identified. Assessment: 14:24 General: Appears in no apparent distress. comfortable, Behavior is calm, cooperative, em appropriate for age, Denies fever. Pain: Complains of pain in suprapubic area Pain currently is 7 out of 10 on a pain scale. Neuro: Level of Consciousness is awake, alert, obeys commands, Oriented to person, place, time, situation, Appropriate for age. Cardiovascular: Capillary refill < 3 seconds Patient's skin is warm and dry. Respiratory: Airway is patent Respiratory effort is even, unlabored, Respiratory pattern is regular, symmetrical. GI: Abdomen is flat. Derm: Wound noted suprapubic area Wound is in January, redness and drainage noted. Musculoskeletal: Capillary refill < 3 seconds, Range of motion: intact in all extremities. Vital Signs: 14:08 BP 124 / 67; Pulse 97; Resp 16; Temp 98.4; Pulse Ox 100% on R/A; Weight 77.11 kg; la1 Height 5 ft. 1 in. (154.94 cm); 14:08 Body Mass Index 32.12 (77.11 kg, 154.94 cm) la1 ED Course: 14:01 Patient arrived in ED. ag5 14:02 None, None is Private Physician. ag5 14:07 Triage completed. la1 14:08 Arm band placed on left wrist. la1 14:09 Jus Muniz NP is PHCP. pm1 14:09 Geovanni Lauren MD is Attending Physician. pm1 14:12 Dami Menendez LVN is Primary Nurse. em 14:23 Patient has correct armband on for positive identification. Placed in gown. Bed in low em position. Call light in reach. Pulse ox on. NIBP on. 15:14 No provider procedures requiring assistance completed. Patient did not have IV access em during this emergency room visit. Administered Medications: 15:14 Not Given (Patient Refused): Clindamycin 600 mg IM once em Outcome: 14:53 Discharge ordered by MD. pm1 15:14 Discharged to home ambulatory. em 15:14 Condition: good 15:14 Discharge instructions given to patient, Instructed on discharge instructions, follow up and referral plans. medication usage, Demonstrated understanding of instructions, follow-up care, medications, Prescriptions given X 1. 15:15 Patient left the ED. em Signatures: Dami Menendez LVN LVN em Jose Dubose RN RN la1 Jus Muniz NP CARPORT ERECTOR pm1 Ryan Sampson ag5
--- NOTE | 2019-02-19 14:54 | EDPHYS ---
Physician Documentation [facility] Name: Salena Musa Age: 23 yrs Sex: Female : 1995 Arrival Date: 02/19/2019 Time: 14:01 Bed 20 Private MD: None, None ED Physician Geovanni Lauren HPI: 02/19 14:52 This 23 yrs old Female presents to ER via Ambulatory with complaints of pm1 Incision Problem. 14:52 Patient presents to ED for recheck of: surgical wound - 1 month. The affected pm1 area is on the suprapubic area. Progress: The patient reports Healing well except for one small area on the right side. The patient has not experienced similar symptoms in the past. No purulent drainage from wound. Historical: - Allergies: 14:08 Amoxicillin; la1 - PMHx: 14:08 Anemia; la1 - Immunization history:: Adult Immunizations up to date. - Social history:: Smoking status: Patient/guardian denies using tobacco. - Ebola Screening: : No symptoms or risks identified at this time. ROS: 14:52 Constitutional: Negative for fever, chills, and weight loss, Cardiovascular: Negative pm1 for chest pain, palpitations, and edema, Respiratory: Negative for shortness of breath, cough, wheezing, and pleuritic chest pain, Abdomen/GI: Negative for abdominal pain, nausea, vomiting, diarrhea, and constipation, Back: Negative for injury and pain, : Negative for injury, bleeding, discharge, and swelling, MS/Extremity: Negative for injury and deformity. 14:52 Neuro: Negative for headache, weakness, numbness, tingling, and seizure. 14:52 Skin: Positive for cellulitis, of the suprapubic area. Exam: 14:52 Constitutional: This is a well developed, well nourished patient who is awake, alert, pm1 and in no acute distress. Head/Face: Normocephalic, atraumatic. Neck: Trachea midline, no thyromegaly or masses palpated, and no cervical lymphadenopathy. Supple, full range of motion without nuchal rigidity, or vertebral point tenderness. No Meningismus. Chest/axilla: Normal chest wall appearance and motion. Nontender with no deformity. No lesions are appreciated. Cardiovascular: Regular rate and rhythm with a normal S1 and S2. No gallops, murmurs, or rubs. Normal PMI, no JVD. No pulse deficits. Respiratory: Lungs have equal breath sounds bilaterally, clear to auscultation and percussion. No rales, rhonchi or wheezes noted. No increased work of breathing, no retractions or nasal flaring. Abdomen/GI: Soft, non-tender, with normal bowel sounds. No distension or tympany. No guarding or rebound. No evidence of tenderness throughout. Back: No spinal tenderness. No costovertebral tenderness. Full range of motion. 14:52 Skin: abscess, not appreciated, cellulitis, that is minimal, on the right side of suprapubic area. 14:52 Neuro: Orientation: is normal, Motor: is normal, moves all fours, Gait: is steady, at a normal pace, without difficulty. Vital Signs: 14:08 BP 124 / 67; Pulse 97; Resp 16; Temp 98.4; Pulse Ox 100% on R/A; Weight 77.11 kg; la1 Height 5 ft. 1 in. (154.94 cm); 14:08 Body Mass Index 32.12 (77.11 kg, 154.94 cm) la1 MDM: 14:36 Patient medically screened. pm1 14:52 Data reviewed: vital signs. Data interpreted: Pulse oximetry: on room air is 100 %. pm1 Interpretation: normal. Counseling: I had a detailed discussion with the patient and/or guardian regarding: the historical points, exam findings, and any diagnostic results supporting the discharge/admit diagnosis, the need for outpatient follow up, to return to the emergency department if symptoms worsen or persist or if there are any questions or concerns that arise at home. Administered Medications: 15:14 Not Given (Patient Refused): Clindamycin 600 mg IM once em Disposition: 15:25 Co-signature as Attending Physician, Geovanni Lauren MD. rn Disposition: 02/19/19 14:53 Discharged to Home. Impression: Cellulitis of abdominal wall. - Condition is Stable. - Discharge Instructions: Cellulitis, Adult. - Prescriptions for Clindamycin HCl 300 mg Oral Capsule - take 1 capsule by ORAL route every 6 hours for 10 days; 40 capsule. - Medication Reconciliation Form, Thank You Letter, Antibiotic Education, Prescription Opioid Use form. - Follow up: Emergency Department; When: As needed; Reason: Worsening of condition. Follow up: Private Physician; When: 2 - 3 days; Reason: Recheck today's complaints, Continuance of care, Re-evaluation by your physician. - Problem is new. - Symptoms have improved. Signatures: Dami Menendez, KITCHEN UTILITY ASSOCIATE KITCHEN UTILITY ASSOCIATE em Geovanni Lauren MD MD rn Gracy, DANO Garcia RN la1 Jus Muniz, SUMMER ASSOCIATE SUMMER ASSOCIATE pm1 Corrections: (The following items were deleted from the chart) 15:15 14:53 02/19/2019 14:53 Discharged to Home. Impression: Cellulitis of abdominal wall. em Condition is Stable. Forms are Medication Reconciliation Form, Thank You Letter, Antibiotic Education, Prescription Opioid Use. Follow up: Emergency Department; When: As needed; Reason: Worsening of condition. Follow up: Private Physician; When: 2 - 3 days; Reason: Recheck today's complaints, Continuance of care, Re-evaluation by your physician. Problem is new. Symptoms have improved. pm1
[2019-02-19] MEDS ORDERED: CLINDAMYCIN IV 150 MG/ML (4 mL) VIAL ONE (14:58)
[2019-02-19 15:26] VITALS: BP 124/67; TEMP 98.4; O2SAT 100
--- OUTSIDE RECORDS SUMMARY | 2019-02-26 20:22 | XMS REPORT ---
:1995 Author Organization [facility] Address [address] [place] [address] [address] [place] [address] Care Team Providers Name Role Phone Unavailable Unavailable Unavailable Payers Payer Name Policy Type Policy Number Effective Date Expiration Date Problems This patient has no known problems. Allergies, Adverse Reactions, Alerts Allergy Allergy Status Severity Reaction(s) Onset Inactive Treating Comments Name Type Date Date Clinician No Known DA Active U 2019-01 Allergies 00:00:0 0 Medications This patient has no known medications. Results Test Description Test Time Test Comments Text Results Atomic Results Result Comments SURGICAL 2019-01-31 RUN SPECIMENS 19:37:00 DATE: 01/31/19 [facility] - LAB PAGE 1 RUN TIME: 1936 Specimen Inquiry RUN USER: INTERFACE JOSLYN ENT: DAMON GOMEZ LOC: N.2A U #: [id number] AGE/SX: 23/F [facility]: Kyler Bustamante : [birth year] BED: 1 DIS: 01/28/19 STATUS: DIS IN TLOC: SPEC #: [id number] RECD: 01/28/19 STATUS: RICO MCLAUGHLIN #: [id number] ELICIA: 01/26/19-[address]: Kyler Bustamante DO ENTERED: 01/30/19-1028 SP TYPE: SURG OTHR DR: DOES_NOT KNOW No Primary or Family PhysicianORDERED: LEVEL II/2, PATH SPEC, H E STAIN/2 TISSUES: A. FALLOPIAN TUBE STERILIZATION - Right fallopian tube B. FALLOPIAN TUBE STERILIZATION - Left fallopian tube CLINICAL HISTORY Diagnosis/Clinical Data: Sterilization Operative Procedure: Tubal ligation FINAL DIAGNOSIS A. Right fallopian tube segment, salpingectomy: Completely transected normal fallopian tube B. Left fallopian tube segment, salpingectomy: Completely transected normal fallopian tube Electronically signed by: Mireille Fritz MD GROSS DESCRIPTION A. The laboratory receives, in a partially formalin-filled container labeled "right fallopian tube segment", a 4.0 cm in length by 0.4 cm in diameter valdes-pink, fimbriated fallopian tube. The serosal surface is valdes-pink and smooth; there is neither mass no lesion. Corporate Attorney sections are submitted by the PA in cassette A1. B. The laboratory receives, in a partially formalin-filled container labeled "left fallopian tube segment", a 4.5 cm in length by 0.4 cm diameter valdes-pink, fimbriated fallopian tube. The serosal surface is valdes-pink and smooth ; there is neither mass no lesion. Corporate Attorney sections are submitted by the PA in cassette B1. TR 01/30/2019 03:16 PM MICROSCOPIC DESCRIPTION Sections from the right and left fallopian tubes show tubal plicae surrounded by fibromuscular stroma. There is neither significant inflammation or malignancy. CONTINUED ON NEXT PAGE * * RUN DATE: 01/31/19 [facility] - LAB PAGE 2 RUN TIME: 1936 Specimen Inquiry RUN USER: INTERFACE SPEC #: [id number] PATIENT: DAMON GOMEZ # [id number] (Continued) ------- Signed SIGNATURE ON FILE Marixa Fritz 10/ 15/19 1937 END OF REPORT RAPID PLASMA REAGIN 2019-01-27 10:42:00 Test Item Value Reference Range Comments RAPID PLASMA REAGIN (test code=RPR) NEGATIVE NEGATIVE CBC W/AUTO [id number] 10:05:00 Test Item Value Reference Range Comments WHITE BLOOD CELL (test code=WBC) 11.9 x10 3/uL 3.2-11.5 RED BLOOD CELL (test code=RBC) 3.62 x10(6)/m 3.70-5.10 HEMOGLOBIN (test code=HGB) 8.6 g/dL 12.0-15.0 HEMATOCRIT (test code=HCT) 25.9 % 35.7-44.8 MEAN CELL VOLUME (test code=MCV) 72 fL 80-100 MEAN CELL HGB (test code=MCH) 23.7 pg 26.2-33.8 MEAN CELL HGB CONCENTRATION (test code=MCHC) 33.0 g/dL 30.0-34.0 RED CELL DISTRIBUTION WIDTH (test code=RDW) 22.2 % 11.3-14.5 PLATELET COUNT (test code=PLT) 241 x10 3/uL 130-408 MEAN PLATELET VOLUME (test code=MPV) 9.7 fl 6.4-10.5 NEUTROPHIL % (test code=NT%) 70.8 % 40.0-70.0 LYMPHOCYTE % (test code=LY%) 15.9 % 20-40 MONOCYTE % (test code=MO%) 9.8 % 1-10 EOSINOPHIL % (test code=EO%) 3.2 % 1.0-5.0 BASOPHIL % (test code=BA%) 0.3 % 0.0-1.0 NEUTROPHIL # (test code=NT#) 8.4 x10 3/uL 1.6-7.2 LYMPHOCYTE # (test code=LY#) 1.90 x10 3/uL 1.1-2.7 MONOCYTE # (test code=MO#) 1.2 x10 3/uL 0.3-0.8 EOSINOPHIL # (test code=EO#) 0.4 x10 3/uL 0.0-0.5 BASOPHIL # (test code=BA#) 0.0 x10 3/uL 0.0-0.1 DIFFERENTIAL [id number] 10:05:00 Test Item Value Reference Range Comments HYPOCHROMIA (test code=HYPO) 1+ NONE SEEN ANISOCYTOSIS (test code=ANISO) 2+ NONE SEEN MICROCYTOSIS (test code=MICR) 2+ NONE SEEN PLATELET MORPHOLOGY (test code=PLTMORPH) NORM NORMAL CBC W/AUTO [id number] 08:47:00 Test Item Value Reference Range Comments WHITE BLOOD CELL (test code=WBC) 11.9 x10 3/uL 3.2-11.5 RED BLOOD CELL (test code=RBC) 3.62 x10(6)/m 3.70-5.10 HEMOGLOBIN (test code=HGB) 8.6 g/dL 12.0-15.0 HEMATOCRIT (test code=HCT) 25.9 % 35.7-44.8 MEAN CELL VOLUME (test code=MCV) 72 fL 80-100 MEAN CELL HGB (test code=MCH) 23.7 pg 26.2-33.8 MEAN CELL HGB CONCENTRATION (test code=MCHC) 33.0 g/dL 30.0-34.0 RED CELL DISTRIBUTION WIDTH (test code=RDW) 22.2 % 11.3-14.5 PLATELET COUNT (test code=PLT) 241 x10 3/uL 130-408 MEAN PLATELET VOLUME (test code=MPV) 9.7 fl 6.4-10.5 NEUTROPHIL % (test code=NT%) 70.8 % 40.0-70.0 LYMPHOCYTE % (test code=LY%) 15.9 % 20-40 MONOCYTE % (test code=MO%) 9.8 % 1-10 EOSINOPHIL % (test code=EO%) 3.2 % 1.0-5.0 BASOPHIL % (test code=BA%) 0.3 % 0.0-1.0 NEUTROPHIL # (test code=NT#) 8.4 x10 3/uL 1.6-7.2 LYMPHOCYTE # (test code=LY#) 1.90 x10 3/uL 1.1-2.7 MONOCYTE # (test code=MO#) 1.2 x10 3/uL 0.3-0.8 EOSINOPHIL # (test code=EO#) 0.4 x10 3/uL 0.0-0.5 BASOPHIL # (test code=BA#) 0.0 x10 3/uL 0.0-0.1 DIFFERENTIAL [id number] 08:47:00 Test Item Value Reference Range Comments PLATELET MORPHOLOGY (test code=PLTMORPH) NORMAL CBC W/AUTO [id number] 08:47:00 Test Item Value Reference Range Comments WHITE BLOOD CELL (test code=WBC) 11.9 x10 3/uL 3.2-11.5 RED BLOOD CELL (test code=RBC) 3.62 x10(6)/m 3.70-5.10 HEMOGLOBIN (test code=HGB) 8.6 g/dL 12.0-15.0 HEMATOCRIT (test code=HCT) 25.9 % 35.7-44.8 MEAN CELL VOLUME (test code=MCV) 72 fL 80-100 MEAN CELL HGB (test code=MCH) 23.7 pg 26.2-33.8 MEAN CELL HGB CONCENTRATION (test code=MCHC) 33.0 g/dL 30.0-34.0 RED CELL DISTRIBUTION WIDTH (test code=RDW) 22.2 % 11.3-14.5 PLATELET COUNT (test code=PLT) 241 x10 3/uL 130-408 MEAN PLATELET VOLUME (test code=MPV) 9.7 fl 6.4-10.5 NEUTROPHIL % (test code=NT%) 70.8 % 40.0-70.0 LYMPHOCYTE % (test code=LY%) 15.9 % 20-40 MONOCYTE % (test code=MO%) 9.8 % 1-10 EOSINOPHIL % (test code=EO%) 3.2 % 1.0-5.0 BASOPHIL % (test code=BA%) 0.3 % 0.0-1.0 NEUTROPHIL # (test code=NT#) 8.4 x10 3/uL 1.6-7.2 LYMPHOCYTE # (test code=LY#) 1.90 x10 3/uL 1.1-2.7 MONOCYTE # (test code=MO#) 1.2 x10 3/uL 0.3-0.8 EOSINOPHIL # (test code=EO#) 0.4 x10 3/uL 0.0-0.5 BASOPHIL # (test code=BA#) 0.0 x10 3/uL 0.0-0.1 DIFFERENTIAL [id number] 08:47:00 Test Item Value Reference Range Comments PLATELET MORPHOLOGY (test code=PLTMORPH) NORMAL AG HEPATITIS B [id number] 13:59:00 Test Item Value Reference Range Comments AG HEPATITIS B SURFACE (test code=HBSAG) NEGATIVE NEGATIVE AB HIV 1 13:59:00 Test Item Value Reference Range Comments AB HIV 1 2 (test code=AIF03AY) NEGATIVE NEGATIVE CBC W/AUTO [id number] 13:43:00 Test Item Value Reference Range Comments WHITE BLOOD CELL (test code=WBC) 12.8 x10 3/uL 3.2-11.5 RED BLOOD CELL (test code=RBC) 4.26 x10(6)/m 3.70-5.10 HEMOGLOBIN (test code=HGB) 9.1 g/dL 12.0-15.0 HEMATOCRIT (test code=HCT) 29.1 % 35.7-44.8 MEAN CELL VOLUME (test code=MCV) 68 fL 80-100 MEAN CELL HGB (test code=MCH) 21.5 pg 26.2-33.8 MEAN CELL HGB CONCENTRATION (test code=MCHC) 31.4 g/dL 30.0-34.0 RED CELL DISTRIBUTION WIDTH (test code=RDW) 20.2 % 11.3-14.5 PLATELET COUNT (test code=PLT) 353 x10 3/uL 130-408 MEAN PLATELET VOLUME (test code=MPV) 9.7 fl 6.4-10.5 NEUTROPHIL % (test code=NT%) 77.0 % 40.0-70.0 LYMPHOCYTE % (test code=LY%) 15.2 % 20-40 MONOCYTE % (test code=MO%) 5.9 % 1-10 EOSINOPHIL % (test code=EO%) 1.4 % 1.0-5.0 BASOPHIL % (test code=BA%) 0.5 % 0.0-1.0 NEUTROPHIL # (test code=NT#) 9.8 x10 3/uL 1.6-7.2 LYMPHOCYTE # (test code=LY#) 1.90 x10 3/uL 1.1-2.7 MONOCYTE # (test code=MO#) 0.8 x10 3/uL 0.3-0.8 EOSINOPHIL # (test code=EO#) 0.2 x10 3/uL 0.0-0.5 BASOPHIL # (test code=BA#) 0.1 x10 3/uL 0.0-0.1 DIFFERENTIAL [id number] 13:43:00 Test Item Value Reference Range Comments HYPOCHROMIA (test code=HYPO) 2+ NONE SEEN POIKILOCYTOSIS (test code=POIK) 1+ NONE SEEN ANISOCYTOSIS (test code=ANISO) 1+ NONE SEEN MICROCYTOSIS (test code=MICR) 2+ NONE SEEN PLATELET MORPHOLOGY (test code=PLTMORPH) NORMAL NORMAL AB RUBELLA [id number] 13:27:00 Test Item Value Reference Range Comments AB RUBELLA IGG (test POSITIVE NEGATIVE Interpretive Data: Rubella IgG code=RUBGAB) Concentrations between >=10 IU/mL and < 15 IU/mL are considered indeterminate for determining immunity to rubella. Studies suggest that vaccinated individuals having these low levels of anti-rubella IgG do show a secondary immune response following re-vaccination but have not been challenged with wild rubella virus (9). A follow-up sample should be taken to further evaluate immune status. If the repeat sample is still indeterminate, the sample may require testing by alternate methods CBC W/AUTO [id number] 12:58:00 Test Item Value Reference Range Comments WHITE BLOOD CELL (test code=WBC) 12.8 x10 3/uL 3.2-11.5 RED BLOOD CELL (test code=RBC) 4.26 x10(6)/m 3.70-5.10 HEMOGLOBIN (test code=HGB) 9.1 g/dL 12.0-15.0 HEMATOCRIT (test code=HCT) 29.1 % 35.7-44.8 MEAN CELL VOLUME (test code=MCV) 68 fL 80-100 MEAN CELL HGB (test code=MCH) 21.5 pg 26.2-33.8 MEAN CELL HGB CONCENTRATION (test code=MCHC) 31.4 g/dL 30.0-34.0 RED CELL DISTRIBUTION WIDTH (test code=RDW) 20.2 % 11.3-14.5 PLATELET COUNT (test code=PLT) 353 x10 3/uL 130-408 MEAN PLATELET VOLUME (test code=MPV) 9.7 fl 6.4-10.5 NEUTROPHIL % (test code=NT%) 77.0 % 40.0-70.0 LYMPHOCYTE % (test code=LY%) 15.2 % 20-40 MONOCYTE % (test code=MO%) 5.9 % 1-10 EOSINOPHIL % (test code=EO%) 1.4 % 1.0-5.0 BASOPHIL % (test code=BA%) 0.5 % 0.0-1.0 NEUTROPHIL # (test code=NT#) 9.8 x10 3/uL 1.6-7.2 LYMPHOCYTE # (test code=LY#) 1.90 x10 3/uL 1.1-2.7 MONOCYTE # (test code=MO#) 0.8 x10 3/uL 0.3-0.8 EOSINOPHIL # (test code=EO#) 0.2 x10 3/uL 0.0-0.5 BASOPHIL # (test code=BA#) 0.1 x10 3/uL 0.0-0.1 DIFFERENTIAL [id number] 12:58:00 Test Item Value Reference Range Comments PLATELET MORPHOLOGY (test code=PLTMORPH) NORMAL CBC W/AUTO [id number] 12:57:00 Test Item Value Reference Range Comments WHITE BLOOD CELL (test code=WBC) 12.8 x10 3/uL 3.2-11.5 RED BLOOD CELL (test code=RBC) 4.26 x10(6)/m 3.70-5.10 HEMOGLOBIN (test code=HGB) 9.1 g/dL 12.0-15.0 HEMATOCRIT (test code=HCT) 29.1 % 35.7-44.8 MEAN CELL VOLUME (test code=MCV) 68 fL 80-100 MEAN CELL HGB (test code=MCH) 21.5 pg 26.2-33.8 MEAN CELL HGB CONCENTRATION (test code=MCHC) 31.4 g/dL 30.0-34.0 RED CELL DISTRIBUTION WIDTH (test code=RDW) 20.2 % 11.3-14.5 PLATELET COUNT (test code=PLT) 353 x10 3/uL 130-408 MEAN PLATELET VOLUME (test code=MPV) 9.7 fl 6.4-10.5 NEUTROPHIL % (test code=NT%) 77.0 % 40.0-70.0 LYMPHOCYTE % (test code=LY%) 15.2 % 20-40 MONOCYTE % (test code=MO%) 5.9 % 1-10 EOSINOPHIL % (test code=EO%) 1.4 % 1.0-5.0 BASOPHIL % (test code=BA%) 0.5 % 0.0-1.0 NEUTROPHIL # (test code=NT#) 9.8 x10 3/uL 1.6-7.2 LYMPHOCYTE # (test code=LY#) 1.90 x10 3/uL 1.1-2.7 MONOCYTE # (test code=MO#) 0.8 x10 3/uL 0.3-0.8 EOSINOPHIL # (test code=EO#) 0.2 x10 3/uL 0.0-0.5 BASOPHIL # (test code=BA#) 0.1 x10 3/uL 0.0-0.1 DIFFERENTIAL [id number] 12:57:00 Test Item Value Reference Range Comments PLATELET MORPHOLOGY (test code=PLTMORPH) NORMAL
== END 2019-02-19 15:15 | disposition home or self-care (01) ==
LOC: ER 13:59
DX: O90.89 Other complications of the puerperium, not elsewhere classified (principal); L03.311 Cellulitis of abdominal wall; Z88.1 Allergy status to other antibiotic agents
CPT/HCPCS: 99283; S0077

== ENCOUNTER 2019-03-22 19:57 | Emergency (ER) | payer OTHER ==
--- OUTSIDE RECORDS SUMMARY | 2019-03-22 19:59 | XMS REPORT ---
:1995 Author Organization [facility] Address [address] [place] [address] [address] [place] [address] Care Team Providers Name Role Phone Unavailable Unavailable Unavailable Payers Payer Name Policy Type Policy Number Effective Date Expiration Date Problems This patient has no known problems. Allergies, Adverse Reactions, Alerts Allergy Allergy Status Severity Reaction(s) Onset Inactive Treating Comments Name Type Date Date Clinician No Known DA Active U 2019-01 Allergies -10 00:00:0 0 Medications This patient has no known medications. Results Test Description Test Time Test Comments Text Results Atomic Results Result Comments SURGICAL 2019-01-31 RUN SPECIMENS 19:37:00 DATE: 01/31/19 [facility] - LAB PAGE 1 RUN TIME: 1936 Specimen Inquiry RUN USER: INTERFACE JOSLYN ENT: DAMON GOMEZ LOC: N.2A U #: [id number] AGE/SX: 23/ [facility] DR: Kyler Bustamante : [birth year] BED: 1 DIS: 01/28/19 STATUS: DIS IN TLOC: SPEC #: [id number] RECD: 01/28/19 STATUS: RICO REQ #: [id number] ELICIA: 01/26/19-[address]: Kyler Bustamante DO [...] smooth; there is neither mass no lesion. Senior Market Intelligence Consultant sections are submitted by the PA in cassette A1. B. The laboratory receives, in a partially formalin-filled container labeled "left fallopian tube segment", a 4.5 cm in length by 0.4 cm diameter valdes-pink, fimbriated fallopian tube. The serosal surface is valdes-pink and smooth ; there is neither mass no lesion. Senior Market Intelligence Consultant sections are submitted by the PA in cassette B1. TR 01/30/2019 03:16 PM MICROSCOPIC DESCRIPTION Sections from the right and left fallopian tubes show tubal plicae surrounded by fibromuscular stroma. There is neither significant inflammation or malignancy. CONTINUED ON NEXT PAGE * * RUN DATE: 01/31/19 [facility] - LAB PAGE 2 RUN TIME: 1936 Specimen Inquiry RUN USER: INTERFACE SPEC #: [id number] PATIENT: PATRICIADAMONMELECIO KELLEY # [id number] (Continued) ------- Signed SIGNATURE ON FILE Marixa Fritz 1936 END OF REPORT RAPID PLASMA REAGIN 2019-01-27 10:42:00 Test Item Value Reference Range Comments RAPID PLASMA REAGIN (test code=RPR) NEGATIVE NEGATIVE CBC W/AUTO [id number] 10:05:00 Test Item Value Reference Range Comments [...] (test code=BA#) 0.0 x10 3/uL 0.0-0.1 DIFFERENTIAL [id number] 10:05:00 Test Item Value Reference Range Comments HYPOCHROMIA (test code=HYPO) 1+ NONE SEEN ANISOCYTOSIS (test code=ANISO) 2+ NONE SEEN MICROCYTOSIS (test code=MICR) 2+ NONE SEEN PLATELET MORPHOLOGY (test code=PLTMORPH) NORM NORMAL CBC W/AUTO [id number] 08:47:00 Test Item Value Reference Range Comments [...] (test code=BA#) 0.0 x10 3/uL 0.0-0.1 DIFFERENTIAL [id number] 08:47:00 Test Item Value Reference Range Comments PLATELET MORPHOLOGY (test code=PLTMORPH) NORMAL CBC W/AUTO [id number] 08:47:00 Test Item Value Reference Range Comments [...] (test code=BA#) 0.0 x10 3/uL 0.0-0.1 DIFFERENTIAL [id number] 08:47:00 Test Item Value Reference Range Comments PLATELET MORPHOLOGY (test code=PLTMORPH) NORMAL AG HEPATITIS B [id number] 13:59:00 Test Item Value Reference Range Comments AG HEPATITIS B SURFACE (test code=HBSAG) NEGATIVE NEGATIVE AB HIV 1 13:59:00 Test Item Value Reference Range Comments AB HIV 1 2 (test code=NLU18JA) NEGATIVE NEGATIVE CBC W/AUTO [id number] 13:43:00 Test Item Value Reference Range Comments [...] (test code=BA#) 0.1 x10 3/uL 0.0-0.1 DIFFERENTIAL [id number] 13:43:00 Test Item Value Reference Range Comments HYPOCHROMIA (test code=HYPO) 2+ NONE SEEN POIKILOCYTOSIS (test code=POIK) 1+ NONE SEEN ANISOCYTOSIS (test code=ANISO) 1+ NONE SEEN MICROCYTOSIS (test code=MICR) 2+ NONE SEEN PLATELET MORPHOLOGY (test code=PLTMORPH) NORMAL NORMAL AB RUBELLA [id number] 13:27:00 Test Item Value Reference Range Comments [...] require testing by alternate methods CBC W/AUTO [id number] 12:58:00 Test Item Value Reference Range Comments [...] (test code=BA#) 0.1 x10 3/uL 0.0-0.1 DIFFERENTIAL [id number] 12:58:00 Test Item Value Reference Range Comments PLATELET MORPHOLOGY (test code=PLTMORPH) NORMAL CBC W/AUTO [id number] 12:57:00 Test Item Value Reference Range Comments [...] (test code=BA#) 0.1 x10 3/uL 0.0-0.1 DIFFERENTIAL [id number] 12:57:00 Test Item Value Reference Range Comments PLATELET MORPHOLOGY (test code=PLTMORPH) NORMAL
[2019-03-22 22:02] LABS: Absolute Lymphocytes (CBC) 2.2 K/uL (0.7-4.9); Basophils % 0.7 % (0-1.3); Hematocrit 37.7 % (36.0-45.0); Lymphocytes % 23.4 % (15.3-44.8); RBC Red Blood Cell Count 4.82 M/uL (3.86-4.86)
[2019-03-22 22:07] LABS: Urine Blood 2+ (NEG); Urine Glucose NEGATIVE (NEG); Urine Protein NEGATIVE (NEG); Urine Specific Gravity 1.015 (1.005-1.030); Urine pH 7.5 (5.0-7.0)
[2019-03-22 22:19] LABS: Anisocytosis 1+; Blood Morphology Comment NOTED (NOT SEEN); Platelet Estimate ADEQ; Polychromasia 1+; Urine White Blood Cell Casts OK
[2019-03-22 22:25] LABS: ALT/SGPT 59 U/L (12-78); AST/SGOT 33 U/L (15-37); Albumin 3.3 g/dL (3.4-5.0); Alkaline Phosphatase 112 U/L (45-117); BUN Blood Urea Nitrogen 7 mg/dL (7-18); Bicarbonate 32 mmol/L (21-32); Bilirubin Direct < 0.1 mg/dL (0-0.2); Bilirubin Total 0.2 mg/dL (0.2-1.0); Glucose Level 86 mg/dL (74-106); Lipase 116 U/L (73-393); Potassium 3.8 mmol/L (3.5-5.1); Sodium Level 139 mmol/L (136-145)
[2019-03-22 22:39] LABS: Urine Bacteria <20 /HPF (<20); Urine Culture Reflex Order NOT NEEDED; Urine RBC <5 /HPF (NONE SEEN)
[2019-03-22] MEDS ORDERED: DICYCLOMINE HCL 10 MG CAP ONE (22:53)
--- NOTE | 2019-03-22 23:00 | ER ---
Nurse's Notes [facility] Name: Salena Musa Age: 23 yrs Sex: Female : 1995 Arrival Date: 03/22/2019 Time: 19:58 Bed 30 Private MD: Diagnosis: Diarrhea, unspecified;Other viral enteritis Presentation: 03/22 20:12 Presenting complaint: Patient states: abd pain, sharp pain to left, intermittent, + iw diarrhea, started last week but now worse, hx of inflammation in intestines, no vomiting, no urinary s/s. Transition of care: patient was not received from another setting of care. Onset of symptoms was March 16, 2019. Risk Assessment: Do you want to hurt yourself or someone else? Patient reports no desire to harm self or others. Initial Sepsis Screen: Does the patient meet any 2 criteria? No. Patient's initial sepsis screen is negative. Does the patient have a suspected source of infection? No. Patient's initial sepsis screen is negative. Care prior to arrival: None. 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 - Social history:: Smoking status: Patient/guardian denies using tobacco. - Ebola Screening: : Patient negative for fever greater than or equal to 101.5 degrees Fahrenheit, and additional compatible Ebola Virus Disease symptoms Patient denies exposure to infectious person Patient denies travel to an Ebola-affected area in the 21 days before illness onset No symptoms or risks identified at this time. Screenin:35 Abuse screen: Denies threats or abuse. Denies injuries from another. Nutritional aj1 screening: No deficits noted. Tuberculosis screening: No symptoms or risk factors identified. Assessment: 20:35 General: Appears in no apparent distress. comfortable, Behavior is calm, cooperative, aj1 appropriate for age. Pain: Complains of pain in right lower quadrant and left lower quadrant Pain does not radiate. Neuro: Level of Consciousness is awake, alert, obeys commands, Oriented to person, place, time, situation. Cardiovascular: Patient's skin is warm and dry. Respiratory: Airway is patent Respiratory effort is even, unlabored, Respiratory pattern is regular, symmetrical. GI: Abdomen is flat, Bowel sounds present X 4 quads. Abd is soft and non tender X 4 quads. Reports lower abdominal pain, diarrhea, Patient currently denies nausea, vomiting. : No signs and/or symptoms were reported regarding the genitourinary system. EENT: No signs and/or symptoms were reported regarding the EENT system. Derm: No signs and/or symptoms reported regarding the dermatologic system. Skin is pink, warm \T\ dry. normal. Musculoskeletal: No signs and/or symptoms reported regarding the musculoskeletal system. Circulation, motion, and sensation intact. 21:35 Reassessment: Patient appears in no apparent distress at this time. No changes from aj1 previously documented assessment. Patient and/or family updated on plan of care and expected duration. Pain level reassessed. Patient is alert, oriented x 3, equal unlabored respirations, skin warm/dry/pink. 22:35 Reassessment: Patient appears in no apparent distress at this time. No changes from aj1 previously documented assessment. Patient and/or family updated on plan of care and expected duration. Pain level reassessed. Patient is alert, oriented x 3, equal unlabored respirations, skin warm/dry/pink. Vital Signs: 20:14 BP 113 / 81; Pulse 94; Resp 16; Temp 98.3; Pulse Ox 97% on R/A; Weight 72.57 kg; Height iw 5 ft. 4 in. (162.56 cm); Pain 4/10; 21:15 BP 107 / 69; Pulse 95; Resp 18; Pulse Ox 98% ; aj1 22:15 BP 112 / 71; Pulse 98; Resp 18; Pulse Ox 98% on R/A; aj1 20:14 Body Mass Index 27.46 (72.57 kg, 162.56 cm) iw ED Course: 19:58 Patient arrived in ED. ds1 20:13 Triage completed. iw 20:14 Arm band placed on. iw 20:24 Юлия Avila, RN is Primary Nurse. aj1 20:35 Patient has correct armband on for positive identification. Bed in low position. Call aj1 light in reach. Side rails up X 1. 20:35 No provider procedures requiring assistance completed. aj1 21:26 Terence Velásquez MD is Attending Physician. tw4 23:20 IV discontinued, intact, bleeding controlled, No redness/swelling at site. Pressure aj1 dressing applied. Administered Medications: 22:55 Drug: Bentyl 20 mg Route: PO; aj1 22:56 CANCELLED (Duplicate Order): Bentyl 20 mg PO once aj1 Outcome: 22:59 Discharge ordered by . tw4 23:20 Discharged to home ambulatory. aj1 23:20 Condition: good 23:20 Discharge instructions given to patient, Instructed on discharge instructions, follow up and referral plans. medication usage, Demonstrated understanding of instructions, follow-up care, medications, Prescriptions given X 2. 23:21 Patient left the ED. aj1 Signatures: Юлия Avila, RN RN aj1 Wen Stone ds1 Kristine Hood, DANO RN iw Terence Velásquez MD MD tw4
--- NOTE | 2019-03-22 23:01 | EDPHYS ---
Physician Documentation [facility] Name: Salena Musa Age: 23 yrs Sex: Female : 1995 Arrival Date: 03/22/2019 Time: 19:58 Bed 30 Private MD: ED Physician Terence Velásquez HPI: 03/23 03:55 This 23 yrs old Female presents to ER via Ambulatory with complaints of tw4 Abdominal Pain. 03:55 The patient presents to the emergency department with diarrhea. tw4 03:55 Onset: The symptoms/episode began/occurred 1 week(s) ago. Possible causes: unknown. The tw4 symptoms are aggravated by nothing. The symptoms are alleviated by nothing. Associated signs and symptoms: The patient has no apparent associated signs or symptoms. Severity of symptoms: At their worst the symptoms were moderate in the emergency department the symptoms are unchanged. The patient has not experienced similar symptoms in the past. 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 - Social history:: Smoking status: Patient/guardian denies using tobacco. - Ebola Screening: : Patient negative for fever greater than or equal to 101.5 degrees Fahrenheit, and additional compatible Ebola Virus Disease symptoms Patient denies exposure to infectious person Patient denies travel to an Ebola-affected area in the 21 days before illness onset No symptoms or risks identified at this time. ROS: 03/23 03:55 Constitutional: Negative for fever, chills, and weight loss, Eyes: Negative for injury, tw4 pain, redness, and discharge, Cardiovascular: Negative for chest pain, palpitations, and edema, Respiratory: Negative for shortness of breath, cough, wheezing, and pleuritic chest pain, Back: Negative for injury and pain, MS/Extremity: Negative for injury and deformity, Skin: Negative for injury, rash, and discoloration, Neuro: Negative for headache, weakness, numbness, tingling, and seizure. Abdomen/GI: Positive for abdominal pain, diarrhea, Negative for nausea and vomiting, nausea, vomiting, and diarrhea, nausea, vomiting, abdominal cramps, abdominal distension, anorexia, dysphagia, hematemesis, black/tarry stool, rectal bleeding. Exam: 03:55 Constitutional: This is a well developed, well nourished patient who is awake, alert, tw4 and in no acute distress. Head/Face: Normocephalic, atraumatic. Chest/axilla: Normal chest wall appearance and motion. Nontender with no deformity. No lesions are appreciated. Cardiovascular: Regular rate and rhythm with a normal S1 and S2. No gallops, murmurs, or rubs. Normal PMI, no JVD. No pulse deficits. Respiratory: Lungs have equal breath sounds bilaterally, clear to auscultation and percussion. No rales, rhonchi or wheezes noted. No increased work of breathing, no retractions or nasal flaring. Abdomen/GI: Soft, non-tender, with normal bowel sounds. No distension or tympany. No guarding or rebound. No evidence of tenderness throughout. Back: No spinal tenderness. No costovertebral tenderness. Full range of motion. MS/ Extremity: Pulses equal, no cyanosis. Neurovascular intact. Full, normal range of motion. Neuro: Awake and alert, GCS 15, oriented to person, place, time, and situation. Cranial nerves II-XII grossly intact. Motor strength 5/5 in all extremities. Sensory grossly intact. Cerebellar exam normal. Normal gait. Vital Signs: 03/22 20:14 BP 113 / 81; Pulse 94; Resp 16; Temp 98.3; Pulse Ox 97% on R/A; Weight 72.57 kg; Height iw 5 ft. 4 in. (162.56 cm); Pain 4/10; 21:15 BP 107 / 69; Pulse 95; Resp 18; Pulse Ox 98% ; aj1 22:15 BP 112 / 71; Pulse 98; Resp 18; Pulse Ox 98% on R/A; aj1 20:14 Body Mass Index 27.46 (72.57 kg, 162.56 cm) iw MDM: 21:26 Patient medically screened. tw4 03/23 03:55 Differential diagnosis: Nonspecific abd pain, gastritis, cholecystitis, pancreatitis, tw4 appendicitis. Data reviewed: vital signs, nurses notes. Data interpreted: Pulse oximetry: Interpretation: normal. Counseling: I had a detailed discussion with the patient and/or guardian regarding: the historical points, exam findings, and any diagnostic results supporting the discharge/admit diagnosis. Medication response: BENTYL. Response to treatment: the patient's symptoms have mildly improved after treatment, and as a result, I will discharge patient. Special discussion: I discussed with the patient/guardian in detail that at this point there is no indication for admission to the hospital. It is understood, however, that if the symptoms persist or worsen the patient needs to return immediately for re-evaluation. 03/22 21:27 Order name: Basic Metabolic Panel tw03/22 21:27 Order name: CBC with Diff; Complete Time: 22:24 [facility] 03/22 22:24 Interpretation: Normal except: MCV 78.2; PLT 420; MCH 25.3; MN% 14.5; RDW 21.5. tw03/22 21:27 Order name: Creatinine for Radiology; Complete Time: 22:24 [facility] 03/22 22:24 Interpretation: Within normal limits: CRE 0.73. [facility] 03/22 21:27 Order name: Hepatic Function [facility] 03/22 21:27 Order name: Lipase [facility] 03/22 21:27 Order name: Urine Microscopic Only 03/22 21:27 Order name: IV Saline Lock; Complete Time: 21:54 [facility] 03/22 21:27 Order name: Labs collected and sent; Complete Time: 21:54 4 03/22 21:27 Order name: Urine Dipstick-Ancillary (obtain specimen); Complete Time: 21:41 [facility] 03/22 21:48 Order name: Urine Dipstick--Ancillary (enter results); Complete Time: 22:24 [facility] 03/22 22:24 Interpretation: Normal except: UBLD 2+; UPH 7.5. 03/22 21:48 Order name: Urine --Ancillary (enter results); Complete Time: 22:24 cm6 03/22 22:07 Order name: CBC Smear Scan; Complete Time: 22:24 EDMS Administered Medications: 03/22 22:55 Drug: Bentyl 20 mg Route: PO; aj1 22:56 CANCELLED (Duplicate Order): Bentyl 20 mg PO once aj1 Disposition: 03/22/19 22:59 Discharged to Home. Impression: Diarrhea, unspecified, Other viral enteritis. - Condition is Stable. - Discharge Instructions: Food Choices to Help Relieve Diarrhea, Adult, Diarrhea, Adult. - Prescriptions for Flagyl 500 mg Oral Tablet - take 1 tablet by ORAL route every 12 hours for 7 days; 14 tablet. Lomotil 2.5- 0.025 mg Oral Tablet - take 2 tablet by ORAL route once daily As needed; 20 tablet. - Medication Reconciliation Form, Thank You Letter, Antibiotic Education, Prescription Opioid Use form. - Follow up: Private Physician; When: Upon discharge from the Emergency Department; Reason: Recheck today's complaints, Continuance of care. - Problem is new. - Symptoms have improved. Signatures: Dispatcher [employer] EDЮлия Rodas RN RN aj1 Kristine Hood RN DANO iw Terence Velásquez MD MD tw4 Corrections: (The following items were deleted from the chart) 22:56 22:24 Bentyl 20 mg PO once ordered. tw4 aj1 23:21 22:59 03/22/2019 22:59 Discharged to Home. Impression: Diarrhea, unspecified; Other aj1 viral enteritis. Condition is Stable. Forms are Medication Reconciliation Form, Thank You Letter, Antibiotic Education, Prescription Opioid Use. Follow up: Private Physician; When: Upon discharge from the Emergency Department; Reason: Recheck today's complaints, Continuance of care. Problem is new. Symptoms have improved. tw4
[2019-03-23 00:52] VITALS: TEMP 98.3
[2019-03-23 01:06] VITALS: BP 112/71; O2SAT 98
== END 2019-03-22 23:21 | disposition home or self-care (01) ==
LOC: ER 19:57
DX: A08.39 Other viral enteritis (principal); R19.7 Diarrhea, unspecified; Z88.1 Allergy status to other antibiotic agents
CPT/HCPCS: 36415; 80048; 80076; 81003; 81015; 81025; 83690; 85025; 99283

== ENCOUNTER 2019-04-04 20:27 | Emergency (ER) | payer OTHER ==
--- OUTSIDE RECORDS SUMMARY | 2019-04-04 20:30 | XMS REPORT ---
:1995 Author Organization [facility] Address [address] [place] [address] [address] [place] [address] Care Team Providers Name Role Phone Unavailable [...] SURGICAL 2019-01-31 RUN SPECIMENS 19:37:00 DATE: 01/31/19 [facility] - LAB PAGE 1 RUN TIME: 1936 Specimen Inquiry RUN USER: INTERFACE JOSLYN ENT: DAMON GOMEZ LOC: N.2A U #: [id number] AGE/SX: 23/ [facility]19[facility] DR: Kyler Bustamante : [birth year] BED: 1 DIS: 01/28/19 STATUS: DIS IN TLOC: SPEC #: [id number] RECD: 01/28/19 STATUS: RICO REQ #: [id number] ELICIA: 01/26/19-[address]: Kyler Bustamante DO [...] smooth; there is neither mass no lesion. Fixture Relamper sections are submitted by the PA in cassette A1. B. The laboratory receives, in a partially formalin-filled container labeled "left fallopian tube segment", a 4.5 cm in length by 0.4 cm diameter valdes-pink, fimbriated fallopian tube. The serosal surface is valdes-pink and smooth ; there is neither mass no lesion. Fixture Relamper sections are submitted by the PA in cassette B1. TR 01/30/2019 03:16 PM MICROSCOPIC DESCRIPTION Sections from the right and left fallopian tubes show tubal plicae surrounded by fibromuscular stroma. There is neither significant inflammation or malignancy. CONTINUED ON NEXT PAGE * * RUN DATE: 01/31/19 MAXIM [facility] - LAB PAGE 2 RUN TIME: 1936 Specimen Inquiry RUN USER: INTERFACE SPEC #: [id number] PATIENT: PATRICIADAMONMELECIO EKLLEY # [id number] (Continued) ------- Signed SIGNATURE ON FILE Marixa Fritz 1936 END OF REPORT RAPID PLASMA REAGIN 2019-01-27 10:42:00 Test Item Value Reference Range Comments RAPID PLASMA REAGIN (test code=RPR) NEGATIVE NEGATIVE CBC W/AUTO [id number] 10:05:00 Test Item Value Reference Range Comments [...] (test code=BA#) 0.0 x10 3/uL 0.0-0.1 DIFFERENTIAL [id number] 10:05:00 Test Item Value Reference Range Comments HYPOCHROMIA (test code=HYPO) 1+ NONE SEEN ANISOCYTOSIS (test code=ANISO) 2+ NONE SEEN MICROCYTOSIS (test code=MICR) 2+ NONE SEEN PLATELET MORPHOLOGY (test code=PLTMORPH) NORM NORMAL CBC W/AUTO [id number] 08:47:00 Test Item Value Reference Range Comments [...] (test code=BA#) 0.0 x10 3/uL 0.0-0.1 DIFFERENTIAL [id number] 08:47:00 Test Item Value Reference Range Comments PLATELET MORPHOLOGY (test code=PLTMORPH) NORMAL CBC W/AUTO [id number] 08:47:00 Test Item Value Reference Range Comments [...] (test code=BA#) 0.0 x10 3/uL 0.0-0.1 DIFFERENTIAL [id number] 08:47:00 Test Item Value Reference Range Comments PLATELET MORPHOLOGY (test code=PLTMORPH) NORMAL AG HEPATITIS B [id number] 13:59:00 Test Item Value Reference Range Comments AG HEPATITIS B SURFACE (test code=HBSAG) NEGATIVE NEGATIVE AB HIV 1 13:59:00 Test Item Value Reference Range Comments AB HIV 1 2 (test code=TMG95QQ) NEGATIVE NEGATIVE CBC W/AUTO [id number] 13:43:00 Test Item Value Reference Range Comments [...] (test code=BA#) 0.1 x10 3/uL 0.0-0.1 DIFFERENTIAL [id number] 13:43:00 Test Item Value Reference Range Comments HYPOCHROMIA (test code=HYPO) 2+ NONE SEEN POIKILOCYTOSIS (test code=POIK) 1+ NONE SEEN ANISOCYTOSIS (test code=ANISO) 1+ NONE SEEN MICROCYTOSIS (test code=MICR) 2+ NONE SEEN PLATELET MORPHOLOGY (test code=PLTMORPH) NORMAL NORMAL AB RUBELLA [id number] 13:27:00 Test Item Value Reference Range Comments [...] require testing by alternate methods CBC W/AUTO [id number] 12:58:00 Test Item Value Reference Range Comments [...] (test code=BA#) 0.1 x10 3/uL 0.0-0.1 DIFFERENTIAL [id number] 12:58:00 Test Item Value Reference Range Comments PLATELET MORPHOLOGY (test code=PLTMORPH) NORMAL CBC W/AUTO [id number] 12:57:00 Test Item Value Reference Range Comments [...] (test code=BA#) 0.1 x10 3/uL 0.0-0.1 DIFFERENTIAL [id number] 12:57:00 Test Item Value Reference Range Comments PLATELET MORPHOLOGY (test code=PLTMORPH) NORMAL
[2019-04-04] MEDS ORDERED: NA CHLORIDE 0.9% 1,000 ML ONE (21:26)
[2019-04-04 22:14] LABS: Absolute Lymphocytes (CBC) 1.5 K/uL (0.7-4.9); Basophils % 0.4 % (0-1.3); Lymphocytes % 12.3 % (15.3-44.8); MPV 8.5 fL (7.6-11.3); RBC Red Blood Cell Count 5.34 M/uL (3.86-4.86)
[2019-04-04 22:33] LABS: ALT/SGPT 24 U/L (12-78); AST/SGOT 21 U/L (15-37); Albumin 2.9 g/dL (3.4-5.0); Alkaline Phosphatase 123 U/L (45-117); BUN Blood Urea Nitrogen 4 mg/dL (7-18); Bicarbonate 24 mmol/L (21-32); Bilirubin Direct < 0.1 mg/dL (0-0.2); Bilirubin Total 0.2 mg/dL (0.2-1.0); Glucose Level 107 mg/dL (74-106); Lipase 68 U/L (73-393); Potassium 3.6 mmol/L (3.5-5.1); Protein, Total 7.9 g/dL (6.4-8.2); Sodium Level 135 mmol/L (136-145)
[2019-04-04] MEDS ORDERED: KETOROLAC 30 MG/ML INJ ONE (23:22)
--- NOTE | 2019-04-04 23:56 | EDPHYS ---
Physician Documentation [facility] Name: Salena Musa Age: 23 yrs Sex: Female : 1995 Arrival Date: 04/04/2019 Time: 20:48 Bed 19 Private MD: ED Physician Terence Velásquez HPI: 04/05 06:34 This 23 yrs old Female presents to ER via Ambulatory with complaints of tw4 Abdominal Pain. 06:34 The patient presents with abdominal pain. Onset: The symptoms/episode began/occurred tw4 today. The symptoms do not radiate. The symptoms are described as dull. Modifying factors: The symptoms are alleviated by nothing, the symptoms are aggravated by nothing. The patient has not experienced similar symptoms in the past. 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 - Social history:: Smoking status: Patient/guardian denies using tobacco. - Ebola Screening: : No symptoms or risks identified at this time. ROS: 04/05 06:34 Constitutional: Negative for fever, chills, and weight loss, Eyes: Negative for injury, tw4 pain, redness, and discharge. Cardiovascular: Negative for chest pain, palpitations, and edema, Respiratory: Negative for shortness of breath, cough, wheezing, and pleuritic chest pain, Back: Negative for injury and pain, MS/Extremity: Negative for injury and deformity, Skin: Negative for injury, rash, and discoloration, Neuro: Negative for headache, weakness, numbness, tingling, and seizure. Abdomen/GI: Positive for abdominal pain, Negative for nausea and vomiting, nausea, vomiting, and diarrhea, nausea, vomiting, diarrhea. Exam: 06:34 Constitutional: This is a well developed, well nourished patient who is awake, alert, tw4 and in no acute distress. Head/Face: Normocephalic, atraumatic. Chest/axilla: Normal chest wall appearance and motion. Nontender with no deformity. No lesions are appreciated. Cardiovascular: Regular rate and rhythm with a normal S1 and S2. No gallops, murmurs, or rubs. Normal PMI, no JVD. No pulse deficits. Respiratory: Lungs have equal breath sounds bilaterally, clear to auscultation and percussion. No rales, rhonchi or wheezes noted. No increased work of breathing, no retractions or nasal flaring. 06:34 MS/ Extremity: Pulses equal, no cyanosis. Neurovascular intact. Full, normal range of motion. Neuro: Awake and alert, GCS 15, oriented to person, place, time, and situation. Cranial nerves II-XII grossly intact. Motor strength 5/5 in all extremities. Sensory grossly intact. Cerebellar exam normal. Normal gait. 06:34 Abdomen/GI: Inspection: abdomen appears normal, Bowel sounds: normal, Palpation: mild abdominal tenderness, in the umbilical area. Vital Signs: 04/04 20:59 BP 110 / 78; Pulse 124; Resp 18; Temp 98.2; Pulse Ox 100% ; Weight 72.57 kg; Height 5 rv ft. 2 in. (157.48 cm); Pain 10/10; 22:00 BP 100 / 60; Pulse 100; Resp 17; Pulse Ox 97% on R/A; rv 23:00 BP 106 / 62; Pulse 92; Resp 16; Pulse Ox 97% on R/A; rv 04/05 00:00 BP 104 / 62; Pulse 96; Resp 15; Pulse Ox 97% on R/A; rv 04/04 20:59 Body Mass Index 29.26 (72.57 kg, 157.48 cm) rv MDM: 04/04 20:52 Patient medically screened. tw4 04/05 06:34 Data reviewed: vital signs, nurses notes, lab test result(s), CBC, white blood cell tw4 count, hemoglobin, hematocrit, platelets, electrolytes, sodium, potassium, chloride, serum bicarbonate, BUN, creatinine, serum glucose, hepatic panel, urinalysis. Counseling: I had a detailed discussion with the patient and/or guardian regarding: the historical points, exam findings, and any diagnostic results supporting the discharge/admit diagnosis, lab results. Special discussion: Based on the patient's Hx, exam, and Dx evaluation, there is no indication for emergent surgery or inpatient Tx. It is understood by the patient/guardian that if the Sx's persist or worsen they need to return immediately for re-evaluation. I discussed with the patient/guardian in detail that at this point there is no indication for admission to the hospital. It is understood, however, that if the symptoms persist or worsen the patient needs to return immediately for re-evaluation. 04/04 21:57 Order name: Basic Metabolic Panel; Complete Time: 23:17 rv 04/04 23:18 Interpretation: Normal except: NA 135; GLUC 107; BUN 4; GFR 84. tw4 04/04 21:57 Order name: CBC with Diff rv 04/04 23:19 Interpretation: WBC 11.8; RBC 5.34; MCV 78.6; MCH 25.2; PLT 529; LYM% 12.3; MN% 12.9; tw4 RDW 20.7. 04/04 21:57 Order name: Creatinine for Radiology; Complete Time: 23:17 rv 04/04 23:19 Interpretation: Within normal limits: CRE 0.85. tw4 04/04 21:57 Order name: Hepatic Function; Complete Time: 23:17 rv 04/04 23:19 Interpretation: Normal except: ALK 123; ALB 2.9; GLOB 5.0; A/G 0.6. tw4 04/04 21:57 Order name: Lipase; Complete Time: 23:17 rv 04/04 23:19 Interpretation: Normal except: LIP 68. tw4 04/04 22:35 Order name: CBC Smear Scan EDMS 04/04 21:57 Order name: IV Saline Lock; Complete Time: 21:57 rv 04/04 21:57 Order name: Labs collected and sent; Complete Time: 21:57 rv Administered Medications: 04/04 21:40 Drug: NS 0.9% 1000 ml Route: IV; Rate: 1 bolus; Site: right forearm; rv 23:12 Follow up: IV Status: Completed infusion; IV Intake: 1000ml rv 23:23 Follow up: IV Status: Completed infusion; IV Intake: 1000ml rv 23:23 Drug: TORadol 30 mg Route: IVP; Site: right forearm; rv 04/05 00:04 Follow up: Response: No adverse reaction rv Disposition: 06:36 Chart complete. tw4 Disposition: 04/04/19 23:55 Discharged to Home. Impression: Other viral enteritis. - Condition is Stable. - Discharge Instructions: Viral Gastroenteritis, Adult. - Prescriptions for Levsin 0.125 mg Oral Tablet - take 1 tablet by ORAL route every 8 hours; 30 tablet. - Medication Reconciliation Form, Thank You Letter, Antibiotic Education, Prescription Opioid Use form. - Follow up: Private Physician; When: Upon discharge from the Emergency Department; Reason: Recheck today's complaints, Continuance of care. - Problem is new. - Symptoms have improved. Signatures: Dispatcher [employer] EDTerence Dewitt MD MD tw4 Gael Núñez RN RN rv Corrections: (The following items were deleted from the chart) 00:05 04/04 23:55 04/04/2019 23:55 Discharged to Home. Impression: Other viral enteritis. rv Condition is Stable. Forms are Medication Reconciliation Form, Thank You Letter, Antibiotic Education, Prescription Opioid Use. Follow up: Private Physician; When: Upon discharge from the Emergency Department; Reason: Recheck today's complaints, Continuance of care. Problem is new. Symptoms have improved. tw4
--- NOTE | 2019-04-04 23:56 | ER ---
Nurse's Notes [facility] Name: Salena Musa Age: 23 yrs Sex: Female : 1995 Arrival Date: 04/04/2019 Time: 20:48 Bed 19 Private MD: Diagnosis: Other viral enteritis Presentation: 04/04 20:58 Presenting complaint: Patient states: I have abdominal pains for the past few days now. rv I have Nausea and Diarrhea. I have more than 5 times already today. Pain is like tightness and intermittent. patient confirm history of Colitis. Transition of care: patient was not received from another setting of care. Onset of symptoms was April 04, 2019 at 15:00. Risk Assessment: Do you want to hurt yourself or someone else? Patient reports no desire to harm self or others. Initial Sepsis Screen: Does the patient meet any 2 criteria? No. Patient's initial sepsis screen is negative. Does the patient have a suspected source of infection? No. Patient's initial sepsis screen is negative. Care prior to arrival: None. 20:58 Method Of Arrival: Ambulatory rv 20:58 Acuity: [place]ER[place] 3 rv REPRESENTATIVE: 20:59 tubal ligation rv Historical: - Allergies: 21:03 Amoxicillin; rv - Home Meds: 21:03 Iron CR Oral [Active]; rv - PMHx: 21:03 Anemia; colitis; rv - PSHx: 21:03 Tubal ligation; ; rv - Immunization history:: Adult Immunizations up to date. - Social history:: Smoking status: Patient/guardian denies using tobacco. - Ebola Screening: : No symptoms or risks identified at this time. Screenin:04 Abuse screen: Denies threats or abuse. Denies injuries from another. Nutritional rv screening: No deficits noted. Tuberculosis screening: No symptoms or risk factors identified. Fall Risk None identified. Assessment: 21:03 General: Appears in no apparent distress. uncomfortable, Behavior is calm, cooperative. rv Pain: Complains of pain in abdomen. Neuro: Level of Consciousness is awake, alert, obeys commands, Oriented to person, place, time, situation. Cardiovascular: Patient's skin is warm and dry. Respiratory: Airway is patent. GI: Bowel sounds present X 4 quads. Abd is soft and non tender X 4 quads. GI: Reports diarrhea, nausea. : No signs and/or symptoms were reported regarding the genitourinary system. EENT: No signs and/or symptoms were reported regarding the EENT system. Derm: Skin is intact. Musculoskeletal: No signs and/or symptoms reported regarding the musculoskeletal system. Vital Signs: 20:59 BP 110 / 78; Pulse 124; Resp 18; Temp 98.2; Pulse Ox 100% ; Weight 72.57 kg; Height 5 rv ft. 2 in. (157.48 cm); Pain 10/10; 22:00 BP 100 / 60; Pulse 100; Resp 17; Pulse Ox 97% on R/A; rv 23:00 BP 106 / 62; Pulse 92; Resp 16; Pulse Ox 97% on R/A; rv 04/05 00:00 BP 104 / 62; Pulse 96; Resp 15; Pulse Ox 97% on R/A; rv 04/04 20:59 Body Mass Index 29.26 (72.57 kg, 157.48 cm) rv ED Course: 04/04 20:48 Patient arrived in ED. jg7 20:51 Gael Núñez, RN is Primary Nurse. rv 20:52 Terence Velásquez MD is Attending Physician. tw4 20:59 Triage completed. rv 21:04 Patient has correct armband on for positive identification. Bed in low position. Call rv light in reach. Side rails up X 1. Pulse ox on. NIBP on. 21:05 Patient placed in the treatment room, on a stretcher, on pulse oximetry, Patient rv notified of wait time. 21:05 Missed attempt(s): 22 gauge Bleeding controlled, band aid applied, catheter tip intact. jd2 21:56 Inserted saline lock: 22 gauge in right forearm, using aseptic technique. Blood rv collected. Administered Medications: 21:40 Drug: NS 0.9% 1000 ml Route: IV; Rate: 1 bolus; Site: right forearm; rv 23:12 Follow up: IV Status: Completed infusion; IV Intake: 1000ml rv 23:23 Follow up: IV Status: Completed infusion; IV Intake: 1000ml rv 23:23 Drug: TORadol 30 mg Route: IVP; Site: right forearm; rv 04/05 00:04 Follow up: Response: No adverse reaction rv Intake: 04/04 23:12 IV: 1000ml; Total: 1000ml. rv 23:23 IV: 1000ml; Total: 2000ml. rv Outcome: 23:55 Discharge ordered by MD. [place] 04/05 00:05 Patient left the ED. rv Signatures: Tami Davisd2 Terence Velásquez MD MD tw4 Gael Núñez, RN RN rv Francesca Vargas [id number]
[2019-04-05 00:10] LABS: Anisocytosis 1+; Blood Morphology Comment NOTED (NOT SEEN); Platelet Estimate ADEQ; Urine White Blood Cell Casts OK
[2019-04-05 02:12] VITALS: TEMP 98.2
[2019-04-05 02:13] VITALS: O2SAT 97
[2019-04-05 02:16] VITALS: BP 104/62
== END 2019-04-05 00:05 | disposition home or self-care (01) ==
LOC: ER 20:27
DX: A08.4 Viral intestinal infection, unspecified (principal); D64.9 Anemia, unspecified; Z88.1 Allergy status to other antibiotic agents
CPT/HCPCS: 96361; 85025; 80048; 36415; 80076; 83690; 96374; 99284; J7030